=== PATIENT | male | born 1975 | race Caucasian/White ===

== ENCOUNTER 2016-08-12 19:22 | Observation (INO) | payer OTHER ==
[2016-08-12 20:12] LABS: Hematocrit 44 % (42-52); Hemoglobin 14.4 g/dl (14.0-18.0); Mean Corpuscular HGB Conc 33 g/dl (31-36); Mean Corpuscular Hemoglobin 30 pg (27-31); Mean Corpuscular Volume 91 fL (80-94); Mean Platelet Volume 7 um3 (7.4-10.4); Red Cell Distribution Width 14 % (10.5-15); White Blood Count 11.9 10^3/ul (3.5-10.8)
[2016-08-12] MEDS ORDERED: NS 0.9% 1000 ML* 1,000 ML IV SCH (20:15)
[2016-08-12 20:28] LABS: ALT 20 U/L (7-52); AST 24 U/L (13-39); Albumin 4.4 g/dL (3.2-5.2); Alkaline Phosphatase 52 U/L (34-104); Anion Gap 9 mmol/L (2-11); BUN/Creatinine Ratio 12.6 (8-20); Blood Urea Nitrogen 16 mg/dL (6-24); C Reactive Protein 6.92 mg/L (< 5.00); CO2 Carbon Dioxide 26 mmol/L (22-32); Calcium 9.5 mg/dL (8.6-10.3); Chloride 101 mmol/L (101-111); Creatine Kinase 314 U/L (10-223); EGFR Non-African American 62.2 (>60); Globulin 3.1 g/dL (2-4); Glucose 100 mg/dL (70-100); Lipase 20 U/L (11.0-82.0); Magnesium 2.2 mg/dL (1.9-2.7); Sodium 136 mmol/L (133-145); Total Protein 7.5 g/dL (6.4-8.9)
[2016-08-12 20:32] LABS: Troponin I 0.01 ng/mL (<0.04)
[2016-08-12 21:02] LABS: Alcohol < 10 mg/dL (<10); Salicylate < 2.50 mg/dL (<30)
[2016-08-12 21:11] LABS: TSH (Thyroid Stimulating Horm) 3.11 mcIU/mL (0.34-5.60)
[2016-08-12 21:25] LABS: Acetaminophen 82 mcg/mL
[2016-08-12 22:22] LABS: Urine Bilirubin Negative (Negative); Urine Glucose Negative (Negative); Urine Nitrite Negative (Negative)
[2016-08-12 22:36] LABS: Benzodiazepine Urine Screen None Detected (None Detect)
--- NOTE | 2016-08-12 22:56 | ED ---
I, Oh,Lyla, scribed for Kevin Moore MD on 08/12/16 at 1958 . Substance Abuse/Use - HPI Summary HPI Summary: This 40 y/o male presents to ED after overdosing on amlodipine, metoprolol and PM APAP ~1630 PM today. Pt is not sure how much quantity or strength of the pills he has overdosed on, but vaguely states that he took 50-80 pills total. Pt states that ingestion was intentional and aimed to harm self. Blood pressure at time of triage and initial evaluation are nml, with triage blood pressure of 125/60. PMHx includes MIx3, HTN, COPD, and anxiety. - History Of Current Complaint Chief Complaint: [facility] Stated Complaint: PILL OVERDOSE Time Seen by Provider: 08/12/16 19:35 Hx Obtained From: Patient, Medical Records Ingestion History: Type/Name Of Drug - APAP, amlodipine, and metoprolol. Overdose Characteristics: Oral Character: Depressed Aggravating Factor(s): Nothing Alleviating Factor(s): Nothing Associated Signs And Symptoms: Intentional Ingestion - Allergies/Home Medications Allergies/Adverse Reactions: Allergies Allergy/AdvReac Type Severity Reaction Status Date / Time No Known Allergies Allergy Verified 08/12/16 19:30 PMH/Surg Hx/FS Hx/Imm Hx Endocrine/Hematology History: Denies: Hx Diabetes, Hx Anemia Cardiovascular History: Reports: Hx Angina, Hx Angioplasty, Hx Cardiac Arrest, Hx Coronary Artery Disease - STENT RCA,SEE CATH REPORT, Hx Hypercholesterolemia , Hx Hypertension, Hx Myocardial Infarction - X2 Denies: Hx Aneurysm, Hx Auto Implanted Cardiovert Defib, Hx Cardiomegaly, Hx Congenital Heart Disease, Hx Congestive Heart Failure, Hx Deep Vein Thrombosis, Hx Embolism, Hx Hypotension, Hx Pacemaker/ICD Respiratory History: Reports: Hx Chronic Obstructive Pulmonary Disease (COPD), Other Respiratory Problems/Disorders - states he wheezes GI History: Reports: Hx Gastroesophageal Reflux Disease - lorri Greenwood MD gave him protonix once Musculoskeletal History: Reports: Hx Back Problems - frreq low back ache Sensory History: Denies: Hx Cataracts Opthamlomology History: Denies: Hx Cataracts - Surgical History Surgery Procedure, Year, and Place: tonsillectomy 1988 Hx Anesthesia Reactions: No Infectious Disease History: Yes Infectious Disease History: Denies: Traveled Outside the [place] in Last 30 Days - Family History Known Family History: Positive: Cardiac Disease - CAD - Social History Alcohol Use: Weekly Hx Substance Use: No Substance Use Type: Reports: None Hx Tobacco Use: Yes Smoking Status (MU): Current Every Day Smoker Type: Cigarettes Amount Used/How Often: 1/2 pack per day Length of Time of Smoking/Using Tobacco: 28 YEARS Have You Smoked in the Last Year: Yes Review of Systems Negative: Fever Positive: Other - OD on amlodipine, metoprolol, and APAP All Other Systems Reviewed And Are Negative: Yes Physical Exam Triage Information Reviewed: Yes Vital Signs On Initial Exam: Initial Vitals Temp Pulse Resp BP Pulse Ox 98.1 F 83 14 125/60 98 08/12/16 19:24 08/12/16 19:24 08/12/16 19:24 08/12/16 19:24 08/12/16 19:24 Vital Signs Reviewed: Yes Appearance: Positive: Well-Appearing, No Pain Distress Skin: Positive: Warm, Skin Color Reflects Adequate Perfusion, Dry, Other - abrasion at LUE #3 digit. Head/Face: Positive: Normal Head/Face Inspection Eyes: Positive: EOMI, ROBIN Neck: Positive: Supple, Nontender Respiratory/Lung Sounds: Positive: Clear to Auscultation, Breath Sounds Present Cardiovascular: Positive: RRR, Pulses are Symmetrical in both Upper and Lower Extremities. Negative: Bradycardia Musculoskeletal: Positive: Strength/ROM Intact Neurological: Positive: Sensory/Motor Intact, Alert, Oriented to Person Place, Time Psychiatric: Positive: Affect/Mood Appropriate AVPU Assessment: Alert Diagnostics - Vital Signs Vital Signs Temp Pulse Resp BP Pulse Ox 08/12/16 19:24 98.1 F 83 14 125/60 98 - Laboratory Lab Results: Lab Results 08/12/16 08/12/16 08/12/16 Range/Units 20:01 20:01 20:01 WBC 11.9 H (3.5-10.8) 10^3/ul RBC 4.80 (4.0-5.4) 10^6/ul Hgb 14.4 (14.0-18.0) g/dl Hct 44 (42-52) % MCV 91 (80-94) fL MCH 30 (27-31) pg MCHC 33 (31-36) g/dl RDW 14 (10.5-15) % Plt Count 289 (150-450) 10^3/ul MPV 7 L (7.4-10.4) um3 Neut % (Auto) 62.9 (38-83) % Lymph % (Auto) 27.0 (25-47) % [place] % (Auto) 7.4 (1-9) % Eos % (Auto) 1.7 (0-6) % Baso % (Auto) 1.0 (0-2) % Absolute Neuts (auto) 7.5 (1.5-7.7) 10^3/ul Absolute Lymphs (auto) 3.2 (1.0-4.8) 10^3/ul Absolute Monos (auto) 0.9 H (0-0.8) 10^3/ul Absolute Eos (auto) 0.2 (0-0.6) 10^3/ul Absolute Basos (auto) 0.1 (0-0.2) 10^3/ul Absolute Nucleated RBC 0.01 10^3/ul Nucleated RBC % 0.1 INR (Anticoag Therapy) 0.98 (0.89-1.11) APTT 27.6 (26.0-36.3) seconds Sodium 136 (133-145) mmol/L Potassium 4.0 (3.5-5.0) mmol/L Chloride 101 (101-111) mmol/L Carbon Dioxide 26 (22-32) mmol/L Anion Gap 9 (2-11) mmol/L BUN 16 (6-24) mg/dL Creatinine 1.27 H (0.67-1.17) mg/dL Est GFR ( Amer) 80.0 (>60) Est GFR (Non-Af Amer) 62.2 (>60) BUN/Creatinine Ratio 12.6 (8-20) Glucose 100 (70-100) mg/dL Lactic Acid (0.5-2.0) mmol/L Calcium 9.5 (8.6-10.3) mg/dL Magnesium 2.2 (1.9-2.7) mg/dL Total Bilirubin 0.50 (0.2-1.0) mg/dL AST 24 (13-39) U/L ALT 20 (7-52) U/L Alkaline Phosphatase 52 (34-104) U/L Total Creatine Kinase 314 H (10-223) U/L CK-MB (CK-2) 7.1 H (0.6-6.3) ng/mL Troponin I 0.01 (<0.04) ng/mL C-Reactive Protein 6.92 H (< 5.00) mg/L Total Protein 7.5 (6.4-8.9) g/dL Albumin 4.4 (3.2-5.2) g/dL Globulin 3.1 (2-4) g/dL Albumin/Globulin Ratio 1.4 (1-3) Lipase 20 (11.0-82.0) U/L TSH 3.11 (0.34-5.60) mcIU/mL Urine Color Urine Appearance Urine pH (5-9) Ur Specific [place] (1.010-1.030) Urine Protein (Negative) Urine Ketones (Negative) Urine Blood (Negative) Urine Nitrate (Negative) Urine Bilirubin (Negative) Urine Urobilinogen (Negative) Ur Leukocyte Esterase (Negative) Urine Glucose (Negative) Urine Ascorbic Acid (Negative) Salicylates < 2.50 (<30) mg/dL Urine Opiates Screen (None Detect) Acetaminophen 82 H* mcg/mL Ur Barbiturates Screen (None Detect) Ur Phencyclidine Scrn (None Detect) Ur Amphetamines Screen (None Detect) U Benzodiazepines Scrn (None Detect) Urine Cocaine Screen (None Detect) U Cannabinoids Screen (None Detect) Serum Alcohol < 10 (<10) mg/dL 08/12/16 08/12/16 08/12/16 Range/Units 20:01 22:00 22:00 WBC (3.5-10.8) 10^3/ul RBC (4.0-5.4) 10^6/ul Hgb (14.0-18.0) g/dl Hct (42-52) % MCV (80-94) fL MCH (27-31) pg MCHC (31-36) g/dl RDW (10.5-15) % Plt Count (150-450) 10^3/ul MPV (7.4-10.4) um3 Neut % (Auto) (38-83) % Lymph % (Auto) (25-47) % [place] % (Auto) (1-9) % Eos % (Auto) (0-6) % Baso % (Auto) (0-2) % Absolute Neuts (auto) (1.5-7.7) 10^3/ul Absolute Lymphs (auto) (1.0-4.8) 10^3/ul Absolute Monos (auto) (0-0.8) 10^3/ul Absolute Eos (auto) (0-0.6) 10^3/ul Absolute Basos (auto) (0-0.2) 10^3/ul Absolute Nucleated RBC 10^3/ul Nucleated RBC % INR (Anticoag Therapy) (0.89-1.11) APTT (26.0-36.3) seconds Sodium (133-145) mmol/L Potassium (3.5-5.0) mmol/L Chloride (101-111) mmol/L Carbon Dioxide (22-32) mmol/L Anion Gap (2-11) mmol/L BUN (6-24) mg/dL Creatinine (0.67-1.17) mg/dL Est GFR ( Amer) (>60) Est GFR (Non-Af Amer) (>60) BUN/Creatinine Ratio (8-20) Glucose (70-100) mg/dL Lactic Acid 0.6 (0.5-2.0) mmol/L Calcium (8.6-10.3) mg/dL Magnesium (1.9-2.7) mg/dL Total Bilirubin (0.2-1.0) mg/dL AST (13-39) U/L ALT (7-52) U/L Alkaline Phosphatase (34-104) U/L Total Creatine Kinase (10-223) U/L CK-MB (CK-2) (0.6-6.3) ng/mL Troponin I (<0.04) ng/mL C-Reactive Protein (< 5.00) mg/L Total Protein (6.4-8.9) g/dL Albumin (3.2-5.2) g/dL Globulin (2-4) g/dL Albumin/Globulin Ratio (1-3) Lipase (11.0-82.0) U/L TSH (0.34-5.60) mcIU/mL Urine Color Straw Urine Appearance Clear Urine pH 5.0 (5-9) Ur Specific [place] 1.009 L (1.010-1.030) Urine Protein Negative (Negative) Urine Ketones Negative (Negative) Urine Blood Negative (Negative) Urine Nitrate Negative (Negative) Urine Bilirubin Negative (Negative) Urine Urobilinogen Negative (Negative) Ur Leukocyte Esterase Negative (Negative) Urine Glucose Negative (Negative) Urine Ascorbic Acid * H (Negative) Salicylates (<30) mg/dL Urine Opiates Screen None detected (None Detect) Acetaminophen mcg/mL Ur Barbiturates Screen None detected (None Detect) Ur Phencyclidine Scrn None detected (None Detect) Ur Amphetamines Screen None detected (None Detect) U Benzodiazepines Scrn None detected (None Detect) Urine Cocaine Screen None detected (None Detect) U Cannabinoids Screen Presumptive positive H (None Detect) Serum Alcohol (<10) mg/dL 08/12/16 Range/Units 22:00 WBC (3.5-10.8) 10^3/ul RBC (4.0-5.4) 10^6/ul Hgb (14.0-18.0) g/dl Hct (42-52) % MCV (80-94) fL MCH (27-31) pg MCHC (31-36) g/dl RDW (10.5-15) % Plt Count (150-450) 10^3/ul MPV (7.4-10.4) um3 Neut % (Auto) (38-83) % Lymph % (Auto) (25-47) % [place] % (Auto) (1-9) % Eos % (Auto) (0-6) % Baso % (Auto) (0-2) % Absolute Neuts (auto) (1.5-7.7) 10^3/ul Absolute Lymphs (auto) (1.0-4.8) 10^3/ul Absolute Monos (auto) (0-0.8) 10^3/ul Absolute Eos (auto) (0-0.6) 10^3/ul Absolute Basos (auto) (0-0.2) 10^3/ul Absolute Nucleated RBC 10^3/ul Nucleated RBC % INR (Anticoag Therapy) (0.89-1.11) APTT (26.0-36.3) seconds Sodium (133-145) mmol/L Potassium (3.5-5.0) mmol/L Chloride (101-111) mmol/L Carbon Dioxide (22-32) mmol/L Anion Gap (2-11) mmol/L BUN (6-24) mg/dL Creatinine (0.67-1.17) mg/dL Est GFR ( Amer) (>60) Est GFR (Non-Af Amer) (>60) BUN/Creatinine Ratio (8-20) Glucose (70-100) mg/dL Lactic Acid (0.5-2.0) mmol/L Calcium (8.6-10.3) mg/dL Magnesium (1.9-2.7) mg/dL Total Bilirubin (0.2-1.0) mg/dL AST (13-39) U/L ALT (7-52) U/L Alkaline Phosphatase (34-104) U/L Total Creatine Kinase (10-223) U/L CK-MB (CK-2) (0.6-6.3) ng/mL Troponin I (<0.04) ng/mL C-Reactive Protein (< 5.00) mg/L Total Protein (6.4-8.9) g/dL Albumin (3.2-5.2) g/dL Globulin (2-4) g/dL Albumin/Globulin Ratio (1-3) Lipase (11.0-82.0) U/L TSH (0.34-5.60) mcIU/mL Urine Color Urine Appearance Urine pH (5-9) Ur Specific [place] (1.010-1.030) Urine Protein (Negative) Urine Ketones (Negative) Urine Blood (Negative) Urine Nitrate (Negative) Urine Bilirubin (Negative) Urine Urobilinogen (Negative) Ur Leukocyte Esterase (Negative) Urine Glucose (Negative) Urine Ascorbic Acid (Negative) Salicylates (<30) mg/dL Urine Opiates Screen (None Detect) Acetaminophen 59 H* mcg/mL Ur Barbiturates Screen (None Detect) Ur Phencyclidine Scrn (None Detect) Ur Amphetamines Screen (None Detect) U Benzodiazepines Scrn (None Detect) Urine Cocaine Screen (None Detect) U Cannabinoids Screen (None Detect) Serum Alcohol (<10) mg/dL Result Diagrams: 08/12/16 20:01 08/12/16 20:01 Lab Statement: Any lab studies that have been ordered have been reviewed, and results considered in the medical decision making process. Course/Dx - Course Course Of Treatment: NO CRITICAL CARE TIME Assessment/Plan: DISCUSSED WITH POISON CONTROL. ADMIT HOSPITALIST STABLE. - Diagnoses Provider Diagnoses: Mental health problem, Overdose - Physician Notifications Discussed Care Of Patient With: Poison control recommends [address] Banerjee (Hospitalist) at 2130 PM Time Discussed With Above Provider: 21:30 Discharge - Discharge Plan Condition: Stable Disposition: ADMITTED TO [facility] Referrals: Nori Velazco MD [Primary Care Provider] - The documentation as recorded by the Justyn barron Soohyun accurately reflects the service I personally performed and the decisions made by me, Kevin Moore MD.
[2016-08-13] MEDS ORDERED: NS 0.9% 1000 ML* 1,000 ML IV SCH (03:45)
[2016-08-13 05:36] LABS: ALT 23 U/L (7-52); AST 25 U/L (13-39); Albumin 3.9 g/dL (3.2-5.2); Alkaline Phosphatase 47 U/L (34-104); Globulin 2.8 g/dL (2-4); Indirect Bilirubin 0.5 mg/dL (0.3-1.0); Total Protein 6.7 g/dL (6.4-8.9)
[2016-08-13 05:58] LABS: Acetaminophen < 15 mcg/mL
[2016-08-13] MEDS: Heparin VIAL(*) 5000 UNITS/ML VIAL (FIVE THOUSAND) SUBCUT SCH ×2 (06:17→13:52)
--- NOTE | 2016-08-13 08:14 | DCNOTE ---
Subjective Date of Service: 08/13/16 Interval History: No chest pain, SOB, cough. No GI upset. Pt states he took an unknown quantity of acetaminophen and metoprolol to "end it." Objective Active Medications: Aspirin (Aspirin Low Dose Tab*) 81 mg PO DAILY [facility] Heparin Sodium (Porcine) (Heparin Vial(*)) 5,000 units SUBCUT Q8HR [facility] Last Admin: 08/13/16 06:17 Dose: 5,000 units Sodium Chloride (Ns 0.9% 1000 Ml*) 1,000 mls @ 100 mls/hr IV PER RATE [facility] Last Admin: 08/13/16 06:16 Dose: 100 mls/hr Ticagrelor (Brilinta*) 90 mg PO BID [facility] Vital Signs 08/13/16 08/13/16 04:18 04:58 Temperature 97.5 F Pulse Rate 51 Respiratory 16 16 Rate Blood Pressure 99/54 (mmHg) O2 Sat by Pulse 98 Oximetry Oxygen Devices in Use Now: None Appearance: Alert, supine in bed. Looks comfortable. Eyes: No Scleral Icterus Neck: NL Appearance and Movements; NL JVP, No Thyroid Enlargement, Masses Respiratory: Symmetrical Chest Expansion and Respiratory Effort, Clear to Auscultation, Clear to Percussion Cardiovascular: NL Sounds; No Murmurs; No JVD, RRR, No Edema, - Extremities: No Edema, No Clubbing, Cyanosis, - Neurological: Alert and Oriented x 3, NL Sensation Result Diagrams: 08/12/16 20:01 08/12/16 20:01 Additional Lab and Data: Lab Results 08/12/16 08/12/16 08/12/16 Range/Units 20:01 20:01 20:01 WBC 11.9 H (3.5-10.8) 10^3/ul RBC 4.80 (4.0-5.4) 10^6/ul Hgb 14.4 (14.0-18.0) g/dl Hct 44 (42-52) % MCV 91 (80-94) fL MCH 30 (27-31) pg MCHC 33 (31-36) g/dl RDW 14 (10.5-15) % Plt Count 289 (150-450) 10^3/ul MPV 7 L (7.4-10.4) um3 Neut % (Auto) 62.9 (38-83) % Lymph % (Auto) 27.0 (25-47) % [place] % (Auto) 7.4 (1-9) % Eos % (Auto) 1.7 (0-6) % Baso % (Auto) 1.0 (0-2) % Absolute Neuts (auto) 7.5 (1.5-7.7) 10^3/ul Absolute Lymphs (auto) 3.2 (1.0-4.8) 10^3/ul Absolute Monos (auto) 0.9 H (0-0.8) 10^3/ul Absolute Eos (auto) 0.2 (0-0.6) 10^3/ul Absolute Basos (auto) 0.1 (0-0.2) 10^3/ul Absolute Nucleated RBC 0.01 10^3/ul Nucleated RBC % 0.1 INR (Anticoag Therapy) 0.98 (0.89-1.11) APTT 27.6 (26.0-36.3) seconds Sodium 136 (133-145) mmol/L Potassium 4.0 (3.5-5.0) mmol/L Chloride 101 (101-111) mmol/L Carbon Dioxide 26 (22-32) mmol/L Anion Gap 9 (2-11) mmol/L BUN 16 (6-24) mg/dL Creatinine 1.27 H (0.67-1.17) mg/dL Est GFR ( Amer) 80.0 (>60) Est GFR (Non-Af Amer) 62.2 (>60) BUN/Creatinine Ratio 12.6 (8-20) Glucose 100 (70-100) mg/dL Lactic Acid (0.5-2.0) mmol/L Calcium 9.5 (8.6-10.3) mg/dL Magnesium 2.2 (1.9-2.7) mg/dL Total Bilirubin 0.50 (0.2-1.0) mg/dL AST 24 (13-39) U/L ALT 20 (7-52) U/L Alkaline Phosphatase 52 (34-104) U/L Total Creatine Kinase 314 H (10-223) U/L CK-MB (CK-2) 7.1 H (0.6-6.3) ng/mL Troponin I 0.01 (<0.04) ng/mL C-Reactive Protein 6.92 H (< 5.00) mg/L Total Protein 7.5 (6.4-8.9) g/dL Albumin 4.4 (3.2-5.2) g/dL Globulin 3.1 (2-4) g/dL Albumin/Globulin Ratio 1.4 (1-3) Lipase 20 (11.0-82.0) U/L TSH 3.11 (0.34-5.60) mcIU/mL Urine Color Urine Appearance Urine pH (5-9) Ur Specific [place] (1.010-1.030) Urine Protein (Negative) Urine Ketones (Negative) Urine Blood (Negative) Urine Nitrate (Negative) Urine Bilirubin (Negative) Urine Urobilinogen (Negative) Ur Leukocyte Esterase (Negative) Urine Glucose (Negative) Urine Ascorbic Acid (Negative) Salicylates < 2.50 (<30) mg/dL Urine Opiates Screen (None Detect) Acetaminophen 82 H* mcg/mL Ur Barbiturates Screen (None Detect) Ur Phencyclidine Scrn (None Detect) Ur Amphetamines Screen (None Detect) U Benzodiazepines Scrn (None Detect) Urine Cocaine Screen (None Detect) U Cannabinoids Screen (None Detect) Serum Alcohol < 10 (<10) mg/dL 08/12/16 08/12/16 08/12/16 Range/Units 20:01 22:00 22:00 WBC (3.5-10.8) 10^3/ul RBC (4.0-5.4) 10^6/ul Hgb (14.0-18.0) g/dl Hct (42-52) % MCV (80-94) fL MCH (27-31) pg MCHC (31-36) g/dl RDW (10.5-15) % Plt Count (150-450) 10^3/ul MPV (7.4-10.4) um3 Neut % (Auto) (38-83) % Lymph % (Auto) (25-47) % [place] % (Auto) (1-9) % Eos % (Auto) (0-6) % Baso % (Auto) (0-2) % Absolute Neuts (auto) (1.5-7.7) 10^3/ul Absolute Lymphs (auto) (1.0-4.8) 10^3/ul Absolute Monos (auto) (0-0.8) 10^3/ul Absolute Eos (auto) (0-0.6) 10^3/ul Absolute Basos (auto) (0-0.2) 10^3/ul Absolute Nucleated RBC 10^3/ul Nucleated RBC % INR (Anticoag Therapy) (0.89-1.11) APTT (26.0-36.3) seconds Sodium (133-145) mmol/L Potassium (3.5-5.0) mmol/L Chloride (101-111) mmol/L Carbon Dioxide (22-32) mmol/L Anion Gap (2-11) mmol/L BUN (6-24) mg/dL Creatinine (0.67-1.17) mg/dL Est GFR ( Amer) (>60) Est GFR (Non-Af Amer) (>60) BUN/Creatinine Ratio (8-20) Glucose (70-100) mg/dL Lactic Acid 0.6 (0.5-2.0) mmol/L Calcium (8.6-10.3) mg/dL Magnesium (1.9-2.7) mg/dL Total Bilirubin (0.2-1.0) mg/dL AST (13-39) U/L ALT (7-52) U/L Alkaline Phosphatase (34-104) U/L Total Creatine Kinase (10-223) U/L CK-MB (CK-2) (0.6-6.3) ng/mL Troponin I (<0.04) ng/mL C-Reactive Protein (< 5.00) mg/L Total Protein (6.4-8.9) g/dL Albumin (3.2-5.2) g/dL Globulin (2-4) g/dL Albumin/Globulin Ratio (1-3) Lipase (11.0-82.0) U/L TSH (0.34-5.60) mcIU/mL Urine Color Straw Urine Appearance Clear Urine pH 5.0 (5-9) Ur Specific [place] 1.009 L (1.010-1.030) Urine Protein Negative (Negative) Urine Ketones Negative (Negative) Urine Blood Negative (Negative) Urine Nitrate Negative (Negative) Urine Bilirubin Negative (Negative) Urine Urobilinogen Negative (Negative) Ur Leukocyte Esterase Negative (Negative) Urine Glucose Negative (Negative) Urine Ascorbic Acid * H (Negative) Salicylates (<30) mg/dL Urine Opiates Screen None detected (None Detect) Acetaminophen mcg/mL Ur Barbiturates Screen None detected (None Detect) Ur Phencyclidine Scrn None detected (None Detect) Ur Amphetamines Screen None detected (None Detect) U Benzodiazepines Scrn None detected (None Detect) Urine Cocaine Screen None detected (None Detect) U Cannabinoids Screen Presumptive positive H (None Detect) Serum Alcohol (<10) mg/dL 08/12/16 Range/Units 22:00 WBC (3.5-10.8) 10^3/ul RBC (4.0-5.4) 10^6/ul Hgb (14.0-18.0) g/dl Hct (42-52) % MCV (80-94) fL MCH (27-31) pg MCHC (31-36) g/dl RDW (10.5-15) % Plt Count (150-450) 10^3/ul MPV (7.4-10.4) um3 Neut % (Auto) (38-83) % Lymph % (Auto) (25-47) % [place] % (Auto) (1-9) % Eos % (Auto) (0-6) % Baso % (Auto) (0-2) % Absolute Neuts (auto) (1.5-7.7) 10^3/ul Absolute Lymphs (auto) (1.0-4.8) 10^3/ul Absolute Monos (auto) (0-0.8) 10^3/ul Absolute Eos (auto) (0-0.6) 10^3/ul Absolute Basos (auto) (0-0.2) 10^3/ul Absolute Nucleated RBC 10^3/ul Nucleated RBC % INR (Anticoag Therapy) (0.89-1.11) APTT (26.0-36.3) seconds Sodium (133-145) mmol/L Potassium (3.5-5.0) mmol/L Chloride (101-111) mmol/L Carbon Dioxide (22-32) mmol/L Anion Gap (2-11) mmol/L BUN (6-24) mg/dL Creatinine (0.67-1.17) mg/dL Est GFR ( Amer) (>60) Est GFR (Non-Af Amer) (>60) BUN/Creatinine Ratio (8-20) Glucose (70-100) mg/dL Lactic Acid (0.5-2.0) mmol/L Calcium (8.6-10.3) mg/dL Magnesium (1.9-2.7) mg/dL Total Bilirubin (0.2-1.0) mg/dL AST (13-39) U/L ALT (7-52) U/L Alkaline Phosphatase (34-104) U/L Total Creatine Kinase (10-223) U/L CK-MB (CK-2) (0.6-6.3) ng/mL Troponin I (<0.04) ng/mL C-Reactive Protein (< 5.00) mg/L Total Protein (6.4-8.9) g/dL Albumin (3.2-5.2) g/dL Globulin (2-4) g/dL Albumin/Globulin Ratio (1-3) Lipase (11.0-82.0) U/L TSH (0.34-5.60) mcIU/mL Urine Color Urine Appearance Urine pH (5-9) Ur Specific [place] (1.010-1.030) Urine Protein (Negative) Urine Ketones (Negative) Urine Blood (Negative) Urine Nitrate (Negative) Urine Bilirubin (Negative) Urine Urobilinogen (Negative) Ur Leukocyte Esterase (Negative) Urine Glucose (Negative) Urine Ascorbic Acid (Negative) Salicylates (<30) mg/dL Urine Opiates Screen (None Detect) Acetaminophen 59 H* mcg/mL Ur Barbiturates Screen (None Detect) Ur Phencyclidine Scrn (None Detect) Ur Amphetamines Screen (None Detect) U Benzodiazepines Scrn (None Detect) Urine Cocaine Screen (None Detect) U Cannabinoids Screen (None Detect) Serum Alcohol (<10) mg/dL Assess/Plan/Problems-Billing Assessment: - Patient Problems (1) Suicide attempt Status: Acute Comment: Patient accepted in transfer to [facility] today. (2) CAD (coronary artery disease) Status: Acute Code(s): I25.10 - ATHSCL HEART DISEASE OF [place] CORONARY ARTERY W/O ANG PCTRS SNOMED Code(s): 12410918 Comment: Re-stented 12/2015. Continue ASA, ticagrelor, statin. Resume metoprolol 08/14. Status and Disposition: Patient accepted in transfer to [facility] today.
[2016-08-13] MEDS ORDERED: Aspirin Low Dose CHEW TAB* 81 MG PO SCH (09:00)
[2016-08-13] MEDS ORDERED: Ticagrelor* 90 MG TAB PO SCH ×2 (09:00→21:00)
[2016-08-13] MEDS ORDERED: Nicotine Inhaler* 10 MG AMP INH PRN (13:14)
[2016-08-13] MEDS ORDERED: busPIRone TAB* 10 MG PO PRN (13:15)
[2016-08-13] MEDS ORDERED: Nitroglycerin TAB 0.4 MG* 0.4 MG TAB SL PRN (13:15)
[2016-08-13] MEDS ORDERED: Albuterol HFA INHALER* 8 gm MDI INH PRN (13:15)
[2016-08-13 13:29] VITALS: BP 105/58
--- NOTE | 2016-08-13 14:14 | HP ---
HISTORY AND PHYSICAL: DATE OF ADMISSION: 08/13/16 PRIMARY CARE PHYSICIAN: Dr. Nori Velazco. CHIEF COMPLAINT: "I tried to kill myself." HISTORY OF PRESENT ILLNESS: The patient is a 40-year-old gentleman, who presented to [facility] after taking too many Tylenol, amlodipine, and metoprolol. The patient is reluctant to give me any more information because he is very irritated and somewhat violent. He refused to answer many of my questions. But according to the ER doctor, he took about pills. PAST MEDICAL HISTORY: Significant for coronary artery disease with 2 prior myocardial infarctions, dyslipidemia, hypertension, GERD, and COPD. MEDICATIONS: His current medications are not entirely known because he is unwilling to give any information, but according to our last records, he was on: 1. Amlodipine 5 mg a day. 2. Aspirin 81 mg daily. 3. Lisinopril 5 mg daily. 4. Metoprolol succinate 25 mg daily. 5. Nitroglycerin sublingual as needed for chest pain. 6. Brilinta 90 mg twice daily. 7. Crestor. ALLERGIES: He has no known drug allergies. FAMILY HISTORY: Mother is alive and well. Father is alive and well. SOCIAL HISTORY: Smokes 3 packs per week and now he smokes 1 pack a day for 28 years. Occasional alcohol, occasional marijuana. He is a bottle machine operator. He is , but unhappy in his marriage. He has 9 children. REVIEW OF SYSTEMS: Unable to obtain from the patient, he is unwilling to speak to me. PHYSICAL EXAMINATION GENERAL: Unpleasant man, lying in bed, in no acute distress. VITAL SIGNS: Blood pressure 94/54, pulse ox 97%, respiratory rate 23 breaths per minute, heart rate 50 beats per minute, temperature is 98.1 degrees. HEENT: Normocephalic, atraumatic. Pupils are equal, round and reactive to light. Moist mucous membranes. NECK: Supple. No JVD, bruits, palpable thyroid, or lymphadenopathy. CHEST: Clear to auscultation and percussion bilaterally. CARDIOVASCULAR: S1, S2 appreciated. Regular rate and rhythm. ABDOMEN: Positive bowel sounds in all 4 quadrants. Soft, nontender, and nondistended. EXTREMITIES: No cyanosis, clubbing, or edema. +2 peripheral pulses bilaterally. NEURO: Alert and oriented x3. Moves all extremities. SKIN: No rashes or abnormalities. DIAGNOSTIC STUDIES/LAB DATA: White count 11.9, hemoglobin 14.4, hematocrit 44 , platelets 289. Sodium 136, potassium 4.0, chloride 101, CO2 26, BUN 16, creatinine 1.27, glucose 100. CPK 314. Troponin 0.01. CRP 6.92. AST 24, ALT 20. First acetaminophen level was 82, second was 59. Positive for marijuana. Urinalysis unremarkable. EKG shows normal sinus rhythm at 76 beats per minute, normal axis, no acute ST- T wave changes. ASSESSMENT AND PLAN: 1. Overdose with Tylenol, metoprolol, and amlodipine. The patient is below the nomogram, he will receive Mucomyst, but we will place on quality assurance monitor final overnight. Recheck Tylenol and liver function tests in the morning. The patient is somewhat bradycardic because of the amlodipine with possible reflex tachycardia, will balance off the metoprolol. We will get Psych evaluation in the morning for depression and suicide attempt. The patient will be on one to one. 2. FEN. Regular diet. 3. DVT prophylaxis. Heparin subcu. 4. The patient is a full code. TIME SPENT: Over 75 minutes was spent on this H and P; more than 40 minutes of which was spent in direct [id number] contact with the patient in evaluation, physical exam, counseling, and coordination of care. CC: Dr. Nori Velazco* [id number]/CPS #: [id number] MTDD
[2016-08-13] MEDS ORDERED: Atorvastatin* 80 MG TAB PO SCH (17:00)
[2016-08-13] MEDS ORDERED: buPROPion SR TAB.SR* 150 MG PO SCH (21:00)
[2016-08-14] MEDS ORDERED: Nicotine PATCH 21 MG/24 HR* PATCH TRANSDERM SCH (08:00)
[2016-08-14] MEDS ORDERED: Lisinopril TAB* 5 MG PO SCH (09:00)
[2016-08-14] MEDS ORDERED: Umeclidin/Vilant 62.5 MDI 62.5/25 mcg 14 INH ELLIPTA DEVICE INH SCH (09:00)
[2016-08-14] MEDS ORDERED: Omeprazole CAP* 20 MG PO SCH (09:00)
[2016-08-14] MEDS ORDERED: Rosuvastatin (NF) 20 MG TAB PO SCH (09:00)
[2016-08-14] MEDS ORDERED: amLODIPine TAB* 5 MG PO SCH ×2 (09:00→14:00)
[2016-08-14] MEDS ORDERED: Metoprolol Succinate XL TAB* 25 MG PO SCH ×2 (09:00→14:00)
[2016-08-14] MEDS ORDERED: Aspirin EC Low Dose* 81 MG TAB.EC PO SCH (09:00)
[2016-08-14] MEDS ORDERED: Nitroglycerin TAB 0.4 MG* 0.4 MG TAB SL PRN (13:13)
[2016-08-14] MEDS ORDERED: Citalopram TAB* 20 MG PO SCH (14:00)
[2016-08-14] MEDS ORDERED: busPIRone TAB* 15 MG PO SCH (14:00)
[2016-08-14] MEDS ORDERED: Atorvastatin* 80 MG TAB PO SCH (17:00)
[2016-08-14] MEDS ORDERED: buPROPion SR TAB.SR* 150 MG PO SCH (17:00)
[2016-08-14] MEDS ORDERED: QUEtiapine TAB* 100 MG PO SCH (21:00)
[2016-08-14] MEDS ORDERED: Ticagrelor* 90 MG TAB PO SCH (21:00)
[2016-08-15] MEDS ORDERED: Aspirin EC Low Dose* 81 MG TAB.EC PO SCH (09:00)
[2016-08-15] MEDS ORDERED: Lisinopril TAB* 5 MG PO SCH (09:00)
--- NOTE | 2016-08-15 18:01 | DS ---
DISCHARGE SUMMARY: DATE OF ADMISSION: DATE OF DISCHARGE: 08/13/16 HISTORY OF PRESENT ILLNESS: This 40-year-old man presented with a history of an overdose of medications. This was felt from the start to be an intentional overdose; in fact, when asked the patient what he thought would happen when he took the medication, he thought he would be "ending it." The patient was very hostile and angry in the emergency room. He was not very forthcoming with me as how many pills he had taken and his history certainly is not very reliable. The overall impression was that he had overdosed on acetaminophen, amlodipine, and metoprolol, which had been prescribed to him. The acetaminophen level was significantly elevated but did not reach the level on the nomogram to require treatment and a repeat level had fallen significantly. The patient was observed on telemetry. He was quite stable. His resting heart rate was in the 50s, close to 60. He seemed to have suffered no significant after effects. He does have history of coronary artery disease and was restarted on his aspirin and ticagrelor. He should continue on aspirin 81 mg daily and ticagrelor 90 mg b.i.d. Statin should be continued as well unless there is some contraindication. I think it would be safe to restart him on his usual dose of metoprolol on August 14. FINAL DIAGNOSES: 1. Suicide attempt. 2. Coronary artery disease. [id number]/[facility] #: [id number] MTDD
== END 2016-08-13 14:15 ==
LOC: ED 19:22 → INTOOBSV 08-13 03:44 → MEDTELE 08-13 03:44
PROVIDERS: ADMIT Internal Medicine; ATTEND Internal Medicine
DX: T39.1X2A Poisoning by 4-Aminophenol derivatives, intentional self-harm, initial encounter (principal); T44.7X2A Poisoning by beta-adrenoreceptor antagonists, intentional self-harm, initial encounter; T46.1X2A Poisoning by calcium-channel blockers, intentional self-harm, initial encounter; I25.110 Atherosclerotic heart disease of native coronary artery with unstable angina pectoris; I25.2 Old myocardial infarction; I10 Essential (primary) hypertension; E78.5 Hyperlipidemia, unspecified; K21.9 Gastro-esophageal reflux disease without esophagitis; J44.9 Chronic obstructive pulmonary disease, unspecified; Z79.82 Long term (current) use of aspirin; Z79.899 Other long term (current) drug therapy; F17.210 Nicotine dependence, cigarettes, uncomplicated; Z95.5 Presence of coronary angioplasty implant and graft
CPT/HCPCS: 36415; 80053; 80076; 80307; 80320; 80329; 81003; 82550; 82553; 83605; 83690; 83735; 84443; 84484; 85025; 85610; 85730; 86140; 93005; 94664; 94760; 96372; 99284; 99406; A9270-GY; G0378; G0480; J1644

== ENCOUNTER 2016-08-13 11:57 | Inpatient (IN) | payer OTHER ==
[2016-08-13] MEDS: chlorproMAZINE TAB* 50 MG PO PRN ×2 (15:43→20:09)
[2016-08-13] MEDS ORDERED: Nicotine Inhaler* 10 MG AMP INH PRN (17:32)
[2016-08-13] MEDS ORDERED: Nicotine GUM* 2 MG PO PRN (17:32)
[2016-08-13] MEDS ORDERED: Mouth Piece, Nicotine* 1 EACH CARTRIDGE INH SCH (17:32)
[2016-08-13] MEDS: Nicotine PATCH 21 MG/24 HR* PATCH TRANSDERM SCH (17:47)
[2016-08-13] MEDS: Nicotine Patch Removal NOTE PATCH OFF SCH (22:08)
[2016-08-13] MEDS ORDERED: Nitroglycerin TAB 0.4 MG* 0.4 MG TAB SL PRN (23:01)
[2016-08-14] MEDS: Nicotine PATCH 21 MG/24 HR* PATCH TRANSDERM SCH (09:45)
[2016-08-14] MEDS: amLODIPine TAB* 5 MG PO SCH ×2 (09:45→09:55)
[2016-08-14] MEDS: Omeprazole CAP* 20 MG PO SCH ×2 (09:47→09:55)
[2016-08-14] MEDS: Atorvastatin* 80 MG TAB PO SCH ×2 (09:47→09:55)
[2016-08-14] MEDS: Lisinopril TAB* 5 MG PO SCH ×2 (09:47→09:55)
[2016-08-14] MEDS: Metoprolol Succinate XL TAB* 25 MG PO SCH ×2 (09:48→09:55)
[2016-08-14] MEDS: Ticagrelor* 90 MG TAB PO SCH ×3 (09:49→21:37)
--- NOTE | 2016-08-14 15:38 | HP ---
DATE OF ADMISSION: 08/13/2016. JUSTIFICATION FOR ADMISSION: The patient is in need of 24 hour supervision and treatment secondary to a suicidal overdose occurring within 72 hours of admission. CHIEF COMPLAINT: "My whole life is going to shit and you're making it worse by keeping me here." HISTORY OF PRESENT ILLNESS: The patient is a 40-year-old, , white male with a history of sev ere coronary artery disease, as well as anxiety and depression who is transferred to the [facility] from [facility] inpatient hospital unit following medical stabilization from an intentional overdose on a handful of Tylenol, Amlodipine and Metoprolol tablets. The patient is extremely hostile and angry. He is l oud, yelling at this observer and it is only with some care that this history is gathered. He state s that he has been fighting with his of the last eight years. He states that on , he got into a fight with a coworker at his job and promptly walked out. He is upset also be cause he is apparently losing his Medicaid insurance because [employer] found out that he was w orking on the side. He is very upset about this, indicating that he cannot live on the subsistence that [employer] provides him with; for example, he states that although he admits to having a c ar that is worth $9,000.00 on the market, the fact that he owes a $11,000.00 on it means that it can not be counted as a material asset. Things came to a head apparently when he got into a conflict wi th his spouse whose name is Mar. It is known that she visited the unit yesterday and the two of them were in a verbal altercation and so she was escorted off the unit. At any rate, in terms of sym ptoms, the patient is endorsing extreme irritability, depressed mood, difficulty sleeping, poor appe tite, limited concentration. When I ask if he will attempt to end his life, he indicates "I'm such a f--k-up, I can't even get that right." He refuses to contract for safety at this time. PAST PSYCHIATRIC HISTORY: The patient states that he has no past history of psychiatric admissions, nor has he seen a psychiatrist in the past. He goes to a family practice office in [facility] and indicates that they have had him on numerous medication trials in the past. He states that what worked the best was Wellbutrin, but he states that the generic version of this, which is Buprop ion has been unhelpful for him. He has also used Lexapro, BuSpar, and Seroquel in the past. The pa sonal denies any past history of suicide attempts. He denies any history of violence towards others . PAST MEDICAL HISTORY: Current medical history is significant for coronary artery disease with three total myocardial infarctions. He also has hyperlipidemia, hypertension, gastroesophageal reflux di sorder, and COPD. CURRENT MEDICATIONS: 1. Amlodipine 2.5 mg p.o. daily. 2. Aspirin 81 mg p.o. daily. 3. Lisinopril 5 mg p.o. daily. 4. Toprol XL 25 mg p.o. daily. 5. Nitroglycerin 0.4 mg as needed sublingually for chest pain. 6. Brilinta 90 mg p.o. b.i.d. 7. Crestor 40 mg daily. 8. BuSpar 10 mg t.i.d. 9. Wellbutrin 150 mg p.o. b.i.d. ALLERGIES: He has no known drug allergies. FAMILY HISTORY: Both of his parents are alive. He states that he has a maternal cousin who was add icted to heroin and successfully completed suicide in 2010. SUBSTANCE ABUSE HISTORY: The patient smokes one pack of cigarettes per day for the past 28 years. He indicates that he is a social drinker, but has not had any alcohol to drink in over two weeks. Brenda gil is a daily cannabis smoker. He used cocaine once in his life and has never used opioids or other illicit drugs. SOCIAL HISTORY: The patient lives in [place] with his of eight years. He indicates that he has two biological children and seven step-children and up to 12 grandchildren. 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 Last date of work was August 09. He states that he is currently on Medicaid for the past three years. He has no history of service and states that he has no formal legal history. REVIEW OF SYSTEMS: The patient denies headache or double vision. He denies sore throat, cough, joselin st pain, or difficulty breathing. He denies abdominal pain, nausea, vomiting, diarrhea, or constipa tion. He denies difficulty ambulating, enlarged lymph nodes, rashes, fevers, or changes in weight. PHYSICAL EXAMINATION VITAL SIGNS: Blood pressure 108/74, heart rate 53, oxygen saturation 99 percent on room air, temper ature 98.4 degrees Fahrenheit, respiratory rate 16 breaths per minute. HEENT: Normocephalic, atraumatic. Pupils are equal, round and reactive to light. NECK: Supple. CHEST: Clear to auscultation bilaterally. CARDIOVASCULAR: Exam reveals normal heart sounds. ABDOMEN: Soft and nontender. EXTREMITIES: Reveal no sign of edema. NEUROLOGIC: He is grossly intact with no focal deficits. LABORATORY DATA: CBC is within normal limits. Complete metabolic panel reveals mild renal insuffi ciency with a creatinine of 1.27. His creatinine kinase is elevated at 314. CK-MB elevated at 7.1. C-reactive protein elevated at 6.92. Urinalysis is within normal limits. Urine drug screen is pos itive for cannabis. In addition, his acetaminophen level is elevated at 59. MENTAL STATUS EXAM: The patient is a middle-aged, white male who is lying in bed wearing a pair of pajamas. He has a mustache. He seems to be fairly well-groomed. He refuses to get up from bed, but stares intensely at this clinician and it is somewhat difficult to establish a rapport with him as he is hostile and angry. His speech is loud and pressured. Mood is irritable with a labile affect. Thought process is tangential. Thought content is significant for his anger at being in the [facility], as well as his anger directed towards his employers, the Medicaid system and his spouse. He cu rrently is very vague about suicidal ideations, refusing to confirm whether he does or does not have any intention of harming himself. He does deny homicidality. He denies auditory or visual halluci nations. Insight and judgment appear to be poor given his recent overdose on multiple medications. Cognitively, he is awake and alert with what would appear to be an average intellect. DIAGNOSES: AXIS I: Unspecified mood disorder, rule out major depressive disorder, recurrent episode severe justyna dev bipolar mixed state. Cannabis use disorder. AXIS II: Deferred. AXIS III: Coronary artery disease, COPD, gastroesophageal reflux disease, hyperlipidemia, hypertens ion, acute renal insufficiency. AXIS IV: Severe, financial, occupational, and primary support stressors. AXIS V: At this time is 40. IMPRESSION: The patient is a 40-year-old, , white male with a history of severe coronary art ronald disease who has had problems with depression and anxiety in the past who now comes to our unit a s a transfer from the Medical Unit following an intentional overdose on Tylenol, Metoprolol, and Aml odipine. The patient remains hostile and upset and it is difficult to form a therapeutic alliance w ith him at this time. PLAN: The patient is admitted to the Adult Behavioral Health Unit where he is placed on q.30 minute checks for his own safety. We will resume outpatient medications, including aspirin, Lipitor in th e place of Crestor, Lisinopril, Metoprolol, nitroglycerin, Brilinta, Amlodipine, Bupropion and Buspi [place]. In addition, we will add a trial of Citalopram 20 mg daily, as well as Seroquel 100 mg nightl y as he states that these have been beneficial in the past. We need to reach his , Mar, for further collateral information and talk to his doctor at [facility]. While he is here, he is certainly encouraged to avail himself of all milieu activities, including group and individual p sychotherapies. [id number]/[facility] #: [id number]
[2016-08-14] MEDS: busPIRone TAB* 10 MG PO PRN (19:42)
[2016-08-14] MEDS: chlorproMAZINE TAB* 50 MG PO PRN (19:42)
[2016-08-14] MEDS: Nicotine Patch Removal NOTE PATCH OFF SCH (21:37)
[2016-08-15] MEDS: Omeprazole CAP* 20 MG PO SCH (09:54)
[2016-08-15] MEDS: amLODIPine TAB* 5 MG PO SCH (09:54)
[2016-08-15] MEDS: Atorvastatin* 80 MG TAB PO SCH (09:54)
[2016-08-15] MEDS: Lisinopril TAB* 5 MG PO SCH (09:54)
[2016-08-15] MEDS: Metoprolol Succinate XL TAB* 25 MG PO SCH (09:54)
[2016-08-15] MEDS: Nicotine PATCH 21 MG/24 HR* PATCH TRANSDERM SCH (09:54)
[2016-08-15] MEDS: Ticagrelor* 90 MG TAB PO SCH ×2 (09:54→21:12)
--- NOTE | 2016-08-15 11:35 | PN ---
Subjective - Subjective Service Type: 73351 Hosp care 25 min moderate complexity Subjective: The patient continues to be extremely irritable, staying in his room, easily upset with staff and his spouse. He insists that he is not getting the medications he's supposed to be taking from home. He also complains of severe tooth pain from tooth decay and insists that several dentists have told him he cannot have extractions because of bleeding risks from his heart medications. I spoke with his , Mar Quiroga ([phone]), who indicates he almost always has an irritable edge, but rarely this severely. She does not believe he would attempt to harm himself again, indicating that this overdose episode was the first time he'd ever tried anything like this. She blames herself, stating he's been annoyed with her. She indicates that he can be verbally abusive but not physically. Diana reports to me that he has been diagnosed with bipolarity before. Objective - Appearance Appearance: Well Developed/Nourished Dysmorphic Features: No Hygiene: Normal Grooming: Fairly Well Kept - Behavior Psychomotor Activities: Normal Exhibits Abnormal Movement: No - Attitude and Relatedness Attitude and Relatedness: Hostile Eye Contact: Good - Speech Quality: Pressured Latencies: Normal Quantity: Terse - Mood Patient's Decription of Mood: "Angry" - Affect Observed Affect: Labile Affect Consistent with: Dysphoria - Thought Process Patient's Thought Process: Coherent Thought Content: No Passive Wish, No Suicidal Planning, No Homicidal Ideation, No Paranoid Ideation - Sensorium Experiencing Hallucinations: No, Sensorium is Clear Type of Hallucinations: Visual: No, Auditory: No, Command: No - Level of Consciousness Level of Consciousness: Agitated Orientation: Yes Intact, Yes Orientated to Time, Yes Orientated to Place, Yes Orientated to Person - Impulse Control Impulse Control: Poor - Insight and Judgement Insight and Judgement: Impaired - Group Participation Particating in Group Activities: No - Medication Management Medication Management Adherence: Partial Assessment - Assessment Merits Inpatient Hospitalization: For Immediate Safety, For Stabilization Inpatient DSM-IV Dx: Bipolar I, mixed phase, severe without psychosis Clinical Impression: 40 y.o. , white male with a history of bipolarity and cannabis abuse who is involuntarily admitted secondary to a suicide attempt in which he swallowed a handful of BP medications. Plan - Plan Treatment Plan: Name: DIANA QUIROGA Birthdate: 1975 [id number] The patient is demonstrating symptoms of both tiny and depression. We will start him on a trial of depakote 500mg PO BID and augment this with quetiapine 50mg PO qhs. I cannot offer him inpatient dentistry but we can treat his pain with prn tramadol. The pharmacy has agreed to give him brand name Crestor in lieu of switching him to formulary lipitor. Will continue to treat. Continued Medication Management: Start Medication Medications: Current Medications Amlodipine Besylate (Norvasc Tab*) 2.5 mg PO DAILY [facility] Last Admin: 08/15/16 09:54 Dose: 2.5 mg Buspirone HCl (Buspar Tab*) 10 mg PO TID PRN PRN Reason: ANXIETY Last Admin: 08/14/16 19:42 Dose: 10 mg Chlorpromazine HCl (Thorazine Tab*) 50 mg PO Q4H PRN PRN Reason: AGITATION Last Admin: 08/14/16 19:42 Dose: 50 mg Device (Nicotine Mouth Piece*) 1 each INH .CARTRIDGE [facility] Last Admin: 08/13/16 17:48 Dose: 1 each Divalproex Sodium (Depakote Dr Tab(*)) 500 mg PO BID [facility] Lisinopril (Prinivil Tab*) 5 mg PO DAILY [facility] Last Admin: 08/15/16 09:54 Dose: 5 mg Metoprolol Succinate (Toprol Xl Tab*) 25 mg PO DAILY [facility] Last Admin: 08/15/16 09:54 Dose: 25 mg Nicotine (Nicotine Inhaler*) 10 mg INH Q2H PRN PRN Reason: CRAVING Last Admin: 08/13/16 17:48 Dose: 10 mg Nicotine (Nicotine Patch 21 Mg/24 Hr*) 1 patch TRANSDERM DAILY [facility] Last Admin: 08/15/16 09:54 Dose: 1 patch Nicotine Polacrilex (Nicotine Gum*) 2 mg PO Q2H PRN PRN Reason: CRAVING Nitroglycerin (Nitroglycerin Tab 0.4 Mg*) 0.4 mg SL Q5M PRN PRN Reason: PAIN - CHEST Omeprazole (Prilosec Cap*) 20 mg PO DAILY [facility] Last Admin: 08/15/16 09:54 Dose: 20 mg Pharmacy Profile Note (Nicotine Patch Removal Note*) 1 note PATCH OFF 2100 [facility] Last Admin: 08/14/16 21:37 Dose: Not Given Quetiapine Fumarate (Seroquel Tab*) 50 mg PO BEDTIME [facility] Rosuvastatin Calcium (Crestor (Nf)) 40 mg PO BEDTIME [facility] Ticagrelor (Brilinta*) 90 mg PO BID [facility] Last Admin: 08/15/16 09:54 Dose: Not Given Tramadol HCl (Ultram*) 100 mg PO Q6H PRN PRN Reason: PAIN (DENTAL) - Discharge Plan Discharge Plan: Inpatient Hospitalization
[2016-08-15] MEDS: traMADol TAB* 50 MG PO PRN (11:55)
[2016-08-15] MEDS: Divalproex DR TAB(*) 500 MG PO SCH ×2 (11:57→21:11)
[2016-08-15] MEDS ORDERED: Rosuvastatin (NF) 10 MG TAB PO SCH (21:00)
[2016-08-15] MEDS: QUEtiapine TAB* 25 MG PO SCH (21:12)
[2016-08-15] MEDS: Nicotine Patch Removal NOTE PATCH OFF SCH (22:22)
[2016-08-16] MEDS: Nicotine PATCH 21 MG/24 HR* PATCH TRANSDERM SCH (08:56)
[2016-08-16] MEDS: amLODIPine TAB* 5 MG PO SCH (08:57)
[2016-08-16] MEDS: Metoprolol Succinate XL TAB* 25 MG PO SCH (08:57)
[2016-08-16] MEDS: Divalproex DR TAB(*) 500 MG PO SCH ×2 (08:57→20:29)
[2016-08-16] MEDS: Omeprazole CAP* 20 MG PO SCH (08:57)
[2016-08-16] MEDS: Lisinopril TAB* 5 MG PO SCH (08:57)
[2016-08-16] MEDS: Ticagrelor* 90 MG TAB PO SCH ×2 (08:57→20:29)
--- NOTE | 2016-08-16 12:30 | PN ---
Subjective - Subjective Service Type: 44616 Hosp care 25 min moderate complexity Subjective: The patient remains irritable and isolative. He states that "5% of my problem is financial and 95% of it is my ." He indicates that she sleeps all day because she works third shift in a factory and refuses his advances, not allowing him to kiss, hug or have any physical contact with her. He accuses her of infidelity, although she denies it to him and he has no proof of it. He continues to complain of tooth pain and discomfort, stating that multiple dentists have told him they cannot extract his rotten teeth without him going off Brilinta. "My cardiovascular technologist, Dr. Chatman, won't let me go off it for even a day!" A call to Dr. Chatman's office resulted in voicemail. The patient remains vague about further thoughts of suicide. "What else am I gonna do?" He is taking meds as prescribed but will not ask for prn's. Objective - Appearance Appearance: Well Developed/Nourished Dysmorphic Features: No Hygiene: Normal Grooming: Fairly Well Kept - Behavior Psychomotor Activities: Normal Exhibits Abnormal Movement: No - Attitude and Relatedness Attitude and Relatedness: Hostile Eye Contact: Good - Speech Quality: Pressured Latencies: Short Quantity: Terse - Mood Patient's Decription of Mood: "Irritable" - Affect Observed Affect: Tense Affect Consistent with: Dysphoria - Thought Process Patient's Thought Process: Coherent Thought Content: Yes Passive Wish, No Suicidal Planning, No Homicidal Ideation, No Paranoid Ideation - Sensorium Experiencing Hallucinations: No, Sensorium is Clear Type of Hallucinations: Visual: No, Auditory: No, Command: No - Level of Consciousness Level of Consciousness: Alert Orientation: Yes Intact, Yes Orientated to Time, Yes Orientated to Place, Yes Orientated to Person - Impulse Control Impulse Control: Poor - Insight and Judgement Insight and Judgement: Impaired - Group Participation Particating in Group Activities: No - Medication Management Medication Management Adherence: Yes Assessment - Assessment Merits Inpatient Hospitalization: For Immediate Safety, For Stabilization Inpatient DSM-IV Dx: Bipolar I, mixed phase, severe without psychosis Clinical Impression: 40 y.o. , white male with a history of bipolarity and cannabis abuse who is involuntarily admitted secondary to a suicide attempt in which he swallowed a handful of BP medications. Plan - Plan Treatment Plan: Name: DIANA QUIROGA Birthdate: 1975 [id number] The patient is demonstrating symptoms of both tiny and depression. We have started him on depakote 500mg PO BID and quetiapine 50mg PO qhs. Chronic tooth pain, secondary to significant tooth decay, is a significant stressor. I cannot offer him inpatient dentistry but we can treat his pain with prn tramadol. I've called his cardiovascular technologist, Dr. Chatman, to see if tooth extraction is indeed contraindicated. Would like his to come in for family meeting. Continued Medication Management: Start Medication Medications: Current Medications Amlodipine Besylate (Norvasc Tab*) 2.5 mg PO DAILY [facility] Last Admin: 08/16/16 08:57 Dose: 2.5 mg Buspirone HCl (Buspar Tab*) 10 mg PO TID PRN PRN Reason: ANXIETY Last Admin: 08/14/16 19:42 Dose: 10 mg Chlorpromazine HCl (Thorazine Tab*) 50 mg PO Q4H PRN PRN Reason: AGITATION Last Admin: 08/14/16 19:42 Dose: 50 mg Device (Nicotine Mouth Piece*) 1 each INH .CARTRIDGE [facility] Last Admin: 08/13/16 17:48 Dose: 1 each Divalproex Sodium (Depakote Dr Tab(*)) 500 mg PO BID [facility] Last Admin: 08/16/16 08:57 Dose: 500 mg Lisinopril (Prinivil Tab*) 5 mg PO DAILY [facility] Last Admin: 08/16/16 08:57 Dose: 5 mg Metoprolol Succinate (Toprol Xl Tab*) 25 mg PO DAILY [facility] Last Admin: 08/16/16 08:57 Dose: 25 mg Nicotine (Nicotine Inhaler*) 10 mg INH Q2H PRN PRN Reason: CRAVING Last Admin: 08/13/16 17:48 Dose: 10 mg Nicotine (Nicotine Patch 21 Mg/24 Hr*) 1 patch TRANSDERM DAILY [facility] Last Admin: 08/16/16 08:56 Dose: Not Given Nicotine Polacrilex (Nicotine Gum*) 2 mg PO Q2H PRN PRN Reason: CRAVING Nitroglycerin (Nitroglycerin Tab 0.4 Mg*) 0.4 mg SL Q5M PRN PRN Reason: PAIN - CHEST Omeprazole (Prilosec Cap*) 20 mg PO DAILY [facility] Last Admin: 08/16/16 08:57 Dose: 20 mg Pharmacy Profile Note (Nicotine Patch Removal Note*) 1 note PATCH OFF 2099 [facility] Last Admin: 08/15/16 22:22 Dose: Not Given Quetiapine Fumarate (Seroquel Tab*) 50 mg PO BEDTIME [facility] Last Admin: 08/15/16 21:12 Dose: 50 mg Rosuvastatin Calcium (Crestor (Nf)) 40 mg PO BEDTIME [facility] Last Admin: 08/15/16 21:11 Dose: 40 mg Ticagrelor (Brilinta*) 90 mg PO BID [facility] Last Admin: 08/16/16 08:57 Dose: 90 mg Tramadol HCl (Ultram*) 100 mg PO Q6H PRN PRN Reason: PAIN (DENTAL) Last Admin: 08/15/16 11:55 Dose: 100 mg - Discharge Plan Discharge Plan: Inpatient Hospitalization
[2016-08-16] MEDS: traMADol TAB* 50 MG PO PRN ×2 (13:53→22:01)
[2016-08-16] MEDS: CMCS: Rosuvastatin (NF) 20 MG TAB PO SCH (20:29)
[2016-08-16] MEDS: QUEtiapine TAB* 25 MG PO SCH (20:29)
[2016-08-16] MEDS: Amoxicillin (*) 875 MG TAB PO SCH (20:29)
[2016-08-16] MEDS: chlorproMAZINE TAB* 50 MG PO PRN (20:29)
[2016-08-16] MEDS: Nicotine Patch Removal NOTE PATCH OFF SCH (20:32)
[2016-08-16] MEDS ORDERED: Atorvastatin* 80 MG TAB PO SCH (21:00)
[2016-08-17] MEDS: Metoprolol Succinate XL TAB* 25 MG PO SCH (08:45)
[2016-08-17] MEDS: Omeprazole CAP* 20 MG PO SCH (08:45)
[2016-08-17] MEDS: amLODIPine TAB* 5 MG PO SCH (08:45)
[2016-08-17] MEDS: Ticagrelor* 90 MG TAB PO SCH ×2 (08:45→20:11)
[2016-08-17] MEDS: Lisinopril TAB* 5 MG PO SCH (08:46)
[2016-08-17] MEDS: Amoxicillin (*) 875 MG TAB PO SCH ×2 (08:46→20:11)
[2016-08-17] MEDS: Divalproex DR TAB(*) 500 MG PO SCH ×2 (08:46→20:11)
[2016-08-17] MEDS: Nicotine PATCH 21 MG/24 HR* PATCH TRANSDERM SCH (09:29)
[2016-08-17] MEDS: chlorproMAZINE TAB* 50 MG PO PRN ×2 (10:52→16:07)
[2016-08-17] MEDS: busPIRone TAB* 10 MG PO PRN (10:52)
--- NOTE | 2016-08-17 15:09 | PN ---
Subjective - Subjective Service Type: 40319 [facility] Subjective: Patient and his Mar are seen, along with OCTAVIO Miroslava Rayna, for family meeting. Patient very tearful and emotive, accusing of pushing him away, not allowing intimacy, either hugging, kissing or sex. At one point he stormed out of the room, laying on his bed, weeping. Convinced to come back in, he continues to yell at her at times for purposely working third shift hours and other behaviors that reduce their contact with each other. For her part she asks several times why she would choose to be intimate, when he is so irritable and hostile with her. The patient still cannot contract for safety and no resolution is come to between he and his spouse. Objective - Appearance Appearance: Well Developed/Nourished Dysmorphic Features: No Hygiene: Normal Grooming: Fairly Well Kept - Behavior Psychomotor Activities: Normal Exhibits Abnormal Movement: No - Attitude and Relatedness Attitude and Relatedness: Hostile Eye Contact: Poor - Speech Quality: Pressured Latencies: Short Quantity: Terse - Mood Patient's Decription of Mood: "Terrible" - Affect Observed Affect: Labile Affect Consistent with: Dysphoria - Thought Process Patient's Thought Process: Coherent Thought Content: Yes Passive Wish, No Suicidal Planning, No Homicidal Ideation, No Paranoid Ideation - Sensorium Experiencing Hallucinations: No, Sensorium is Clear Type of Hallucinations: Visual: No, Auditory: No, Command: No - Level of Consciousness Level of Consciousness: Alert Orientation: Yes Intact, Yes Orientated to Time, Yes Orientated to Place, Yes Orientated to Person - Impulse Control Impulse Control: Poor - Insight and Judgement Insight and Judgement: Impaired - Group Participation Particating in Group Activities: No - Medication Management Medication Management Adherence: Yes Assessment - Assessment Merits Inpatient Hospitalization: For Immediate Safety, For Stabilization Inpatient DSM-IV Dx: Bipolar I, mixed phase, severe without psychosis Clinical Impression: 40 y.o. , white male with a history of bipolarity and cannabis abuse who is involuntarily admitted secondary to a suicide attempt in which he swallowed a handful of BP medications. Plan - Plan Treatment Plan: Name: DIANA QUIROGA Birthdate: 1975 [id number] The patient is demonstrating symptoms of both tiny and depression. We have started him on depakote 500mg PO BID and quetiapine 50mg PO qhs. Chronic tooth pain, secondary to significant tooth decay, is a significant stressor. I cannot offer him inpatient dentistry but we can treat his pain with prn tramadol. I've called his job forwarder, Dr. Chatman, to see if tooth extraction is indeed contraindicated and this clinician will be at the hospital on Saturday. Family meeting was very intense. May require another one next week. Continued Medication Management: Start Medication Medications: Current Medications Amlodipine Besylate (Norvasc Tab*) 2.5 mg PO DAILY [facility] Last Admin: 08/17/16 08:45 Dose: 2.5 mg Amoxicillin (Amoxicillin (*)) 875 mg PO BID [facility] Last Admin: 08/17/16 08:46 Dose: 875 mg Buspirone HCl (Buspar Tab*) 10 mg PO TID PRN PRN Reason: ANXIETY Last Admin: 08/17/16 10:52 Dose: 10 mg Chlorpromazine HCl (Thorazine Tab*) 50 mg PO Q4H PRN PRN Reason: AGITATION Last Admin: 08/17/16 10:52 Dose: 50 mg Device (Nicotine Mouth Piece*) 1 each INH .CARTRIDGE [facility] Last Admin: 08/13/16 17:48 Dose: 1 each Divalproex Sodium (Depakote Dr Tab(*)) 500 mg PO BID [facility] Last Admin: 08/17/16 08:46 Dose: 500 mg Lisinopril (Prinivil Tab*) 5 mg PO DAILY [facility] Last Admin: 08/17/16 08:46 Dose: 5 mg Metoprolol Succinate (Toprol Xl Tab*) 25 mg PO DAILY [facility] Last Admin: 08/17/16 08:45 Dose: 25 mg Nicotine (Nicotine Inhaler*) 10 mg INH Q2H PRN PRN Reason: CRAVING Last Admin: 08/13/16 17:48 Dose: 10 mg Nicotine (Nicotine Patch 21 Mg/24 Hr*) 1 patch TRANSDERM DAILY [facility] Last Admin: 08/17/16 09:29 Dose: Not Given Nicotine Polacrilex (Nicotine Gum*) 2 mg PO Q2H PRN PRN Reason: CRAVING Nitroglycerin (Nitroglycerin Tab 0.4 Mg*) 0.4 mg SL Q5M PRN PRN Reason: PAIN - CHEST Omeprazole (Prilosec Cap*) 20 mg PO DAILY [facility] Last Admin: 08/17/16 08:45 Dose: 20 mg Pharmacy Profile Note (Nicotine Patch Removal Note*) 1 note PATCH OFF 2099 [facility] Last Admin: 08/16/16 20:32 Dose: Not Given Quetiapine Fumarate (Seroquel Tab*) 50 mg PO BEDTIME [facility] Last Admin: 08/16/16 20:29 Dose: 50 mg Rosuvastatin Calcium (Crestor (Nf)) 40 mg PO BEDTIME [facility] Last Admin: 08/16/16 20:29 Dose: 40 mg Ticagrelor (Brilinta*) 90 mg PO BID [facility] Last Admin: 08/17/16 08:45 Dose: 90 mg Tramadol HCl (Ultram*) 100 mg PO Q6H PRN PRN Reason: PAIN (DENTAL) Last Admin: 08/16/16 22:01 Dose: 100 mg - Discharge Plan Discharge Plan: Inpatient Hospitalization
[2016-08-17] MEDS: QUEtiapine TAB* 25 MG PO SCH (20:11)
[2016-08-17] MEDS: CMCS: Rosuvastatin (NF) 20 MG TAB PO SCH (20:11)
[2016-08-17] MEDS: Nicotine Patch Removal NOTE PATCH OFF SCH (20:32)
[2016-08-18] MEDS: Amoxicillin (*) 875 MG TAB PO SCH ×2 (08:14→20:13)
[2016-08-18] MEDS: Omeprazole CAP* 20 MG PO SCH (08:14)
[2016-08-18] MEDS: Metoprolol Succinate XL TAB* 25 MG PO SCH (08:14)
[2016-08-18] MEDS: chlorproMAZINE TAB* 50 MG PO PRN ×2 (08:14→20:12)
[2016-08-18] MEDS: Ticagrelor* 90 MG TAB PO SCH ×2 (08:14→20:13)
[2016-08-18] MEDS: busPIRone TAB* 10 MG PO PRN ×2 (08:14→20:12)
[2016-08-18] MEDS: amLODIPine TAB* 5 MG PO SCH (08:15)
[2016-08-18] MEDS: Lisinopril TAB* 5 MG PO SCH (08:15)
[2016-08-18] MEDS: Divalproex DR TAB(*) 500 MG PO SCH ×2 (08:15→20:13)
[2016-08-18] MEDS: Nicotine PATCH 21 MG/24 HR* PATCH TRANSDERM SCH (10:34)
--- NOTE | 2016-08-18 16:33 | PN ---
Subjective - Subjective Service Type: 91818 Hosp care 15 min low complexity Subjective: I reviewed Dr Carpenter's sign-out and notes since Saturday afternoon. He requested thorazine prns in the last day. Staff note he slept 6.5 hrs last night. Pt found in the milieu talking with other pts. We briefly reviewed events leading to hospitalization. He was able to review diagnostic and medication treatment plan. Mood is "not too bad" and rates depression as 2/10 (10 being the worst) and anxiety is "up and down." He notes stress/agitation associated with yesterday's family meeting. He preemptively took thorazine and buspar prn first thing this am. Appetite and energy are stable. Reports poor, restless sleep last night. He notes continued back and tooth pain, but tolerable with prns. He denies any medication side effects. He became heated when reviewing complaints about dental treatment, cardiac history and interactions with insurance companies.He denies SI or thoughts of self-harm. He denies thoughts of harming others. Objective - Appearance Appearance: Well Developed/Nourished Dysmorphic Features: No Grooming: Fairly Well Kept - Behavior Psychomotor Activities: Normal - animated when talking Exhibits Abnormal Movement: No - Attitude and Relatedness Attitude and Relatedness: Irritable Eye Contact: Good - intense - Speech Quality: Pressured Latencies: Short Quantity: Copious - Mood Patient's Decription of Mood: "not too bad" - Affect Observed Affect: Tense Affect Consistent with: Dysphoria - Thought Process Patient's Thought Process: Coherent, Tangential, Circumstantial Thought Content: No Passive Wish, No Suicidal Planning, No Homicidal Ideation, No Paranoid Ideation - Sensorium Experiencing Hallucinations: No, Sensorium is Clear - Level of Consciousness Level of Consciousness: Alert Orientation: Yes Intact, Yes Orientated to Time, Yes Orientated to Place, Yes Orientated to Person - Impulse Control Impulse Control: Tenuous - Insight and Judgement Insight and Judgement: Fair - Medication Management Medication Management Adherence: Yes Assessment - Assessment Merits Inpatient Hospitalization: To Initiate Treatment, For Ongoing Evaluation , Consolidate Improvements, For Discharge Planning, Pending Safe DC Plan Inpatient DSM-IV Dx: Bipolar I, mixed phase, severe without psychosis Clinical Impression: 40yo male with a hx of bipolar, cannabis use d/o and CAD, involuntarily admitted due to suicide attempt by overdose. He is tolerating medications with reduction in distress. Plan - Plan Treatment Plan: Name: DIANA QUIROGA Birthdate: 1975 [id number] - to increase quetiapine to 100mg po qhs due to limited success last night - continue other meds Medications: Current Medications Amlodipine Besylate (Norvasc Tab*) 2.5 mg PO DAILY [facility] Last Admin: 08/18/16 08:15 Dose: 2.5 mg Amoxicillin (Amoxicillin (*)) 875 mg PO BID [facility] Last Admin: 08/18/16 08:14 Dose: 875 mg Buspirone HCl (Buspar Tab*) 10 mg PO TID PRN PRN Reason: ANXIETY Last Admin: 08/18/16 08:14 Dose: 10 mg Chlorpromazine HCl (Thorazine Tab*) 50 mg PO Q4H PRN PRN Reason: AGITATION Last Admin: 08/18/16 08:14 Dose: 50 mg Device (Nicotine Mouth Piece*) 1 each INH .CARTRIDGE [facility] Last Admin: 08/13/16 17:48 Dose: 1 each Divalproex Sodium (Depakote Dr Tab(*)) 500 mg PO BID [facility] Last Admin: 08/18/16 08:15 Dose: 500 mg Lisinopril (Prinivil Tab*) 5 mg PO DAILY [facility] Last Admin: 08/18/16 08:15 Dose: 5 mg Metoprolol Succinate (Toprol Xl Tab*) 25 mg PO DAILY [facility] Last Admin: 08/18/16 08:14 Dose: 25 mg Nicotine (Nicotine Inhaler*) 10 mg INH Q2H PRN PRN Reason: CRAVING Last Admin: 08/13/16 17:48 Dose: 10 mg Nicotine (Nicotine Patch 21 Mg/24 Hr*) 1 patch TRANSDERM DAILY [facility] Last Admin: 08/18/16 10:34 Dose: Not Given Nicotine Polacrilex (Nicotine Gum*) 2 mg PO Q2H PRN PRN Reason: CRAVING Nitroglycerin (Nitroglycerin Tab 0.4 Mg*) 0.4 mg SL Q5M PRN PRN Reason: PAIN - CHEST Omeprazole (Prilosec Cap*) 20 mg PO DAILY [facility] Last Admin: 08/18/16 08:14 Dose: 20 mg Pharmacy Profile Note (Nicotine Patch Removal Note*) 1 note PATCH OFF 2100 [facility] Last Admin: 08/17/16 20:32 Dose: 1 note Quetiapine Fumarate (Seroquel Tab*) 50 mg PO BEDTIME [facility] Last Admin: 08/17/16 20:11 Dose: 50 mg Rosuvastatin Calcium (Crestor (Nf)) 40 mg PO BEDTIME [facility] Last Admin: 08/17/16 20:11 Dose: 40 mg Ticagrelor (Brilinta*) 90 mg PO BID [facility] Last Admin: 08/18/16 08:14 Dose: 90 mg Tramadol HCl (Ultram*) 100 mg PO Q6H PRN PRN Reason: PAIN (DENTAL) Last Admin: 08/16/16 22:01 Dose: 100 mg
[2016-08-18] MEDS: CMCS: Rosuvastatin (NF) 20 MG TAB PO SCH (20:13)
[2016-08-18] MEDS: QUEtiapine TAB* 100 MG PO SCH (20:13)
[2016-08-19] MEDS: Amoxicillin (*) 875 MG TAB PO SCH ×2 (07:59→20:09)
[2016-08-19] MEDS: amLODIPine TAB* 5 MG PO SCH (08:00)
[2016-08-19] MEDS: Ticagrelor* 90 MG TAB PO SCH ×2 (08:00→20:09)
[2016-08-19] MEDS: Omeprazole CAP* 20 MG PO SCH (08:00)
[2016-08-19] MEDS: Metoprolol Succinate XL TAB* 25 MG PO SCH (08:02)
[2016-08-19] MEDS: Lisinopril TAB* 5 MG PO SCH (08:02)
[2016-08-19] MEDS: Divalproex DR TAB(*) 500 MG PO SCH ×2 (08:02→20:09)
[2016-08-19] MEDS: busPIRone TAB* 10 MG PO PRN ×2 (08:03→20:09)
[2016-08-19 08:19] LABS: HDL Cholesterol 57.8 mg/dL
[2016-08-19] MEDS: Nicotine PATCH 21 MG/24 HR* PATCH TRANSDERM SCH (10:57)
[2016-08-19] MEDS: Nicotine Patch Removal NOTE PATCH OFF SCH ×2 (16:54→20:38)
[2016-08-19] MEDS: traMADol TAB* 50 MG PO PRN (20:08)
[2016-08-19] MEDS: QUEtiapine TAB* 100 MG PO SCH (20:09)
[2016-08-19] MEDS: chlorproMAZINE TAB* 50 MG PO PRN (20:09)
[2016-08-19] MEDS: CMCS: Rosuvastatin (NF) 20 MG TAB PO SCH (20:10)
[2016-08-20] MEDS: Metoprolol Succinate XL TAB* 25 MG PO SCH (07:58)
[2016-08-20] MEDS: Amoxicillin (*) 875 MG TAB PO SCH ×2 (07:58→20:05)
[2016-08-20] MEDS: Ticagrelor* 90 MG TAB PO SCH ×2 (07:58→20:06)
[2016-08-20] MEDS: Lisinopril TAB* 5 MG PO SCH (07:58)
[2016-08-20] MEDS: Divalproex DR TAB(*) 500 MG PO SCH ×2 (07:58→20:05)
[2016-08-20] MEDS: amLODIPine TAB* 5 MG PO SCH (07:58)
[2016-08-20] MEDS: Omeprazole CAP* 20 MG PO SCH (07:59)
[2016-08-20] MEDS: Nicotine PATCH 21 MG/24 HR* PATCH TRANSDERM SCH (08:01)
[2016-08-20 08:14] VITALS: BP 112/81
--- NOTE | 2016-08-20 15:24 | PN ---
Subjective - Subjective Service Type: 27520 Hosp care 25 min moderate complexity Subjective: Diana displays marked improvement today, when compared with last session on Saturday before the weekend. He has a bright affect and is observed socializing with peers and cooperating with staff, including attending and participating in group programming. He denies SI and feels that he would benefit from discharge home tomorrow. He reports talking with his boss at work and is happy to report that he still has a job, and will be getting work-related health-care benefits at the end of the month when his medicaid expires. The patient had several visits with his over the weekend with much less hostility. I spoke with his plumber, Dr. Chatman, this morning, who would not support even a temporary discontinuation of his anti-platelet therapies, but informed me that numerous dentists in the community will commonly work around this issue by completing tooth extractions on a limited, one to two tooth at a time, basis. The patient is agreeable with us making a dental follow up appointment in the community. Objective - Appearance Appearance: Well Developed/Nourished Dysmorphic Features: No Hygiene: Normal Grooming: Well Kept - Behavior Psychomotor Activities: Normal Exhibits Abnormal Movement: No - Attitude and Relatedness Attitude and Relatedness: Cooperative Eye Contact: Good - Speech Quality: Unpressured Latencies: Normal Quantity: Appropriate - Mood Patient's Decription of Mood: "Good" - Affect Observed Affect: Good Affect Consistent with: Euthymia - Thought Process Patient's Thought Process: Coherent Thought Content: No Passive Wish, No Suicidal Planning, No Homicidal Ideation, No Paranoid Ideation - Sensorium Experiencing Hallucinations: No, Sensorium is Clear Type of Hallucinations: Visual: No, Auditory: No, Command: No - Level of Consciousness Level of Consciousness: Alert Orientation: Yes Intact, Yes Orientated to Time, Yes Orientated to Place, Yes Orientated to Person - Impulse Control Impulse Control: Intact - Insight and Judgement Insight and Judgement: Good - Group Participation Particating in Group Activities: Yes - Medication Management Medication Management Adherence: Yes Assessment - Assessment Merits Inpatient Hospitalization: Consolidate Improvements, Pending Safe DC Plan Inpatient DSM-IV Dx: Bipolar I, mixed phase, severe without psychosis Clinical Impression: 40 y.o. , white male with a history of bipolarity and cannabis abuse who is involuntarily admitted secondary to a suicide attempt in which he swallowed a handful of BP medications. Plan - Plan Treatment Plan: Name: DIANA QUIROGA Birthdate: 1975 [id number] The patient has improved markedly and his suicidality has resolved under inpatient care. We have started him on depakote 500mg PO BID and quetiapine 100mg PO qhs, and his valproic acid level in therapeutic. He's still complaining of anxiety, so we will increase prn buspirone to 15mg TID. Chronic tooth pain has improved with the use of amoxicillin and prn tramadol and we will schedule him a dental f/u appointment at [facility]. We will schedule his d/c for tomorrow and meet with his , Mar, one last time before he leaves. Continued Medication Management: Different Medication Medications: Current Medications Amlodipine Besylate (Norvasc Tab*) 2.5 mg PO DAILY [facility] Last Admin: 08/20/16 07:58 Dose: 2.5 mg Amoxicillin (Amoxicillin (*)) 875 mg PO BID [facility] Last Admin: 08/20/16 07:58 Dose: 875 mg Buspirone HCl (Buspar Tab*) 15 mg PO TID PRN PRN Reason: ANXIETY Chlorpromazine HCl (Thorazine Tab*) 50 mg PO Q4H PRN PRN Reason: AGITATION Last Admin: 08/19/16 20:09 Dose: 50 mg Device (Nicotine Mouth Piece*) 1 each INH .CARTRIDGE [facility] Last Admin: 08/13/16 17:48 Dose: 1 each Divalproex Sodium (Depakote Dr Tab(*)) 500 mg PO BID [facility] Last Admin: 08/20/16 07:58 Dose: 500 mg Lisinopril (Prinivil Tab*) 5 mg PO DAILY [facility] Last Admin: 08/20/16 07:58 Dose: 5 mg Metoprolol Succinate (Toprol Xl Tab*) 25 mg PO DAILY [facility] Last Admin: 08/20/16 07:58 Dose: 25 mg Nicotine (Nicotine Inhaler*) 10 mg INH Q2H PRN PRN Reason: CRAVING Last Admin: 08/13/16 17:48 Dose: 10 mg Nicotine (Nicotine Patch 21 Mg/24 Hr*) 1 patch TRANSDERM DAILY [facility] Last Admin: 08/20/16 08:01 Dose: Not Given Nicotine Polacrilex (Nicotine Gum*) 2 mg PO Q2H PRN PRN Reason: CRAVING Nitroglycerin (Nitroglycerin Tab 0.4 Mg*) 0.4 mg SL Q5M PRN PRN Reason: PAIN - CHEST Omeprazole (Prilosec Cap*) 20 mg PO DAILY [facility] Last Admin: 08/20/16 07:59 Dose: 20 mg Pharmacy Profile Note (Nicotine Patch Removal Note*) 1 note PATCH OFF 2100 [facility] Last Admin: 08/19/16 20:38 Dose: Not Given Quetiapine Fumarate (Seroquel Tab*) 100 mg PO BEDTIME [facility] Last Admin: 08/19/16 20:09 Dose: 100 mg Rosuvastatin Calcium (Crestor (Nf)) 40 mg PO BEDTIME [facility] Last Admin: 08/19/16 20:10 Dose: 40 mg Ticagrelor (Brilinta*) 90 mg PO BID [facility] Last Admin: 08/20/16 07:58 Dose: 90 mg Tramadol HCl (Ultram*) 100 mg PO Q6H PRN PRN Reason: PAIN (DENTAL) Last Admin: 08/19/16 20:08 Dose: 100 mg - Discharge Plan Discharge Plan: Outpatient Follow Up Outpatient Program: [facility] Lab Results - Lab Results Lab Results: 08/19/16 08/19/16 07:50 07:50 Hemoglobin A1c 5.7 Triglycerides 62 Cholesterol 171 LDL Cholesterol 101 HDL Cholesterol 57.8 Valproic Acid 64.0
[2016-08-20] MEDS: Nicotine Patch Removal NOTE PATCH OFF SCH (20:05)
[2016-08-20] MEDS: QUEtiapine TAB* 100 MG PO SCH (20:06)
[2016-08-20] MEDS: CMCS: Rosuvastatin (NF) 20 MG TAB PO SCH (20:06)
[2016-08-20] MEDS: busPIRone TAB* 15 MG PO PRN (20:06)
[2016-08-20] MEDS: chlorproMAZINE TAB* 50 MG PO PRN (20:07)
[2016-08-21] MEDS: amLODIPine TAB* 5 MG PO SCH (08:32)
[2016-08-21] MEDS: Amoxicillin (*) 875 MG TAB PO SCH (08:33)
[2016-08-21] MEDS: Metoprolol Succinate XL TAB* 25 MG PO SCH (08:33)
[2016-08-21] MEDS: Omeprazole CAP* 20 MG PO SCH (08:33)
[2016-08-21] MEDS: Divalproex DR TAB(*) 500 MG PO SCH (08:33)
[2016-08-21] MEDS: Lisinopril TAB* 5 MG PO SCH (08:33)
[2016-08-21] MEDS: Nicotine PATCH 21 MG/24 HR* PATCH TRANSDERM SCH (08:34)
[2016-08-21] MEDS: Ticagrelor* 90 MG TAB PO SCH (08:34)
[2016-08-21] MEDS: chlorproMAZINE TAB* 50 MG PO PRN (12:08)
[2016-08-21] MEDS: busPIRone TAB* 15 MG PO PRN (12:08)
--- NOTE | 2016-08-22 02:07 | DS ---
DISCHARGE SUMMARY: DATE OF ADMISSION: 08/13/16 DATE OF DISCHARGE: 08/21/16 DISCHARGE DIAGNOSES: As follows: Quincy I: Bipolar disorder, most recent episode mixed severe without psychotic features, cannabis use disorder. Quincy II: Deferred. Quincy III: Coronary artery disease, chronic obstructive pulmonary disease, gastroesophageal reflux disease, hyperlipidemia, hypertension, acute renal insufficiency. Quincy IV: Severe financial, occupational, and primary support stressors. Quincy V: At the time of admission was 40 and at the time of discharge is 60. CONDITION AT THE TIME OF DISCHARGE: Stable. The patient is calm, cooperative. His demeanor is significantly more interactive and less irritable. He is taking responsibility for his behaviors. He has been calm and cooperative with the treatment team going to groups, safe on all checks. He is future oriented, indicating that he is returning to work and looking forward to celebrating his birthday with his tomorrow. There were 2 acute stressors leading up to this hospitalization, both of which have been addressed by the treatment team. The first is his severe tooth pain. We have spoken with his date pitter and gotten clearance for him to receive dental treatment in the community for tooth extraction, which is badly needed. This appointment is established for after the time of discharge. The other stressor would be interpersonal and relational problems with his . We have had her visit for family meeting and work on the intimacy issues between the two of them and they both feel that the relationship is in an improved place compared to the time of admission. The patient denies any thoughts of hurting himself or others, and we have seen no evidence of violent or self destructive behavior on our unit. MENTAL STATUS EXAM: At the time of discharge, the patient is a middle-aged white male, wearing a pair of shorts and a T-shirt and glasses. He has a mustache. He is fairly well groomed. He has good eye contact and is easy to establish a rapport with. Speech has a normal rate, tone, and volume. Mood is euthymic with a bright affect. Thought process is linear. Thought content is significant for his desire to be discharged from the hospital so that he can go out with his for his birthday tomorrow. He denies suicidal or homicidal ideations. He denies auditory or visual hallucinations. Insight and judgment appear to be good given the fact that he is willing to follow up with outpatient treatment. Cognitively, he is awake and alert with what would appear to be an average intellect. DISCHARGE INSTRUCTIONS: To the patient are as follows: A. Medications: 1. The patient is to take amoxicillin 875 mg p.o. b.i.d. for the next 7 days. 2. Depakote 500 mg p.o. b.i.d. 3. Lisinopril 5 mg p.o. b.i.d. 4. Metoprolol XL 25 mg p.o. daily. 5. Nitroglycerin 0.4 mg sublingually every 5 minutes p.r.n. for chest pain. 6. He takes Prilosec 40 mg p.o. daily. 7. Seroquel 100 mg p.o. q.h.s. 8. Crestor 40 mg daily. 9. Brilinta 90 mg p.o. b.i.d. 10. Amlodipine 2.5 mg p.o. daily. 11. BuSpar 15 mg p.o. t.i.d. as a p.r.n. for anxiety. B. Diet: Regular. C. Activities: As tolerated. The patient is strongly encouraged to abstain from tobacco products; however, he is declining the offer of continued nicotine replacement therapy indicating his continued preference to smoke on the outpatient basis. The patient has no studies pending at this time. D. Followup care: The patient will have a dental appointment at the [facility], which is scheduled for , 08/23/16. He also has an outpatient appointment for an intake at [facility] and that is established for 08/24/16. HOSPITAL COURSE: As follows: Part A: Reason for admission: The patient is a 40-year-old white male with a history of severe coronary artery disease as well as anxiety and depression who was transferred to the [facility] from the inpatient hospital unit following medical stabilization from an intentional overdose on a handful of Tylenol, amlodipine, and metoprolol tablets. The patient was extremely hostile and angry at the time of admission. He was loud, yelling at this observer and it is only with some care that his history was gathered. He states that he has been fighting with his of the last 8 years stating that on , he got into an altercation with the coworker at his job and promptly walked out. 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 He is very upset about this, indicating that he cannot live on the subsistence that social service technician provides him; for example, he states that although he has a car that is worth $9000 on the market, he owes over $11,000, meaning that this should not be counted as a material asset. Things came to a head apparently when he got into conflict with his spouse, whose name is Mar. It is known that she visit him on the unit yesterday and the 2 of them had a verbal altercation and she was escorted off the unit. At any rate, in terms of symptoms, he was endorsing extreme irritability, depressed mood, difficulty sleeping, poor appetite, limited concentration. When I asked if he would attempt again to end his life, he states "I am such a f--k-up, I cannot even get that right." He refuses to contract for safety at the time of admission. Part-B: Psychiatric treatment rendered: The patient was admitted to the adult behavioral health unit where he was placed on q.15-minute checks for his own safety. Initially, he was extremely irritable particularly stating that we had gotten his medications wrong and he refused to participate in group or milieu programming, preferred to lay in bed staring at his ceiling being upset and difficult to interact with. I was able to reconcile his medications from home and the only one that we could not provide him with was Crestor as we do not have this on formulary. Because he showed such concern about this medicine, I did speak with pharmacy to make it so that he could receive this on the inpatient service, so his Lipitor was changed back to the Crestor that he takes on an outpatient basis. One of his complaints was severe tooth pain. He states that several of his teeth have significant decay and require extraction, but that his dental providers would not do this because he is on 2-antiplatelet agents including Brilinta and aspirin. I was able to contact his outpatient date pitter, Dr. Dae Chatman, here at [facility], who did confirm that he cannot even temporarily go off his antiplatelet regimen, but Dr. Chatman indicated that there are several dentist in the area who are willing to do extractions if only one tooth at a time. For this reason, we set him up with a followup appointment with the [facility], and he will be seeing them shortly after discharge. An additional stressor was the lack of intimacy with his . He states that his ignores him and will not allow him to touch her, let alone have sex or be physically intimate. We had a family meeting that she attended and it came out that she would be happy to be intimate with him were it not for his extreme irritability. We did discover that he had a past diagnosis of bipolar disorder and he did seem to displace symptoms of both tiny and depression. For this reason, we changed his diagnosis to bipolar disorder with a mixed presentation and we discontinued his citalopram and Wellbutrin, which he had taken on an outpatient basis and these were replaced with a trial of Depakote 500 mg p.o. b.i.d. and Seroquel 50 mg nightly. After sometime, the Seroquel was increased to 100 mg nightly and he clearly started to improve. His valproic acid level was therapeutic at 65. He started attending groups and gained privileges to use the computer and go outside. He was able to contact his employer who welcomed him back to work and they assured him that even though he was losing his Medicaid, he would be able to get on an Employment Health and Dental Policy, which greatly relieved him. We placed him on a trial of amoxicillin 875 mg twice daily and treated his dental pain symptomatically with 50 to 100 mg of Ultram. At this point, he is set to get his teeth evaluated at [facility] on the following discharge. He has also been enrolled at [facility]. The patient is calm, cooperative, has experienced a marked reduction in agitated, depressed and manic symptoms. His Depakote level is therapeutic and we are discharging him to care in the community. He is steadfastly denying suicidal ideations at this time and has done so far several days. [id number]/[facility] #: [id number] HUNG
== END 2016-08-21 13:20 | disposition home or self-care (01) | DRG 753 ==
LOC: BSU 14:21
PROVIDERS: ADMIT Psychiatry & Neurology Psychiatry; ATTEND Psychiatry & Neurology Psychiatry
DX: F31.63 Bipolar disorder, current episode mixed, severe, without psychotic features (principal); N17.9 Acute kidney failure, unspecified; I11.9 Hypertensive heart disease without heart failure; F12.10 Cannabis abuse, uncomplicated; I25.10 Atherosclerotic heart disease of native coronary artery without angina pectoris; J44.9 Chronic obstructive pulmonary disease, unspecified; K21.9 Gastro-esophageal reflux disease without esophagitis; E78.5 Hyperlipidemia, unspecified; F17.210 Nicotine dependence, cigarettes, uncomplicated; I25.2 Old myocardial infarction; Z79.82 Long term (current) use of aspirin; Z79.899 Other long term (current) drug therapy; Z81.3 Family history of other psychoactive substance abuse and dependence
CPT/HCPCS: 36415; 80061; 80164; 83036; 90847; 99222; 99231; 99232; 99238; 99406; A9270-GY

== ENCOUNTER 2017-07-17 18:34 | Emergency (ER) | payer BC ==
[2017-07-17 18:46] VITALS: BP 145/72
[2017-07-17] MEDS ORDERED: HYDROcodone/ACETAMIN 5-325 MG* 1 TAB PO ONE (18:51)
--- NOTE | 2017-07-17 19:18 | RAD ---
Indication: Right rib injury. 3 views of the right ribs and dual energy PA view of the chest are are reviewed. There are fractures of the right 10th and ninth ribs and what appears to be 2 locations. No other fractures are identified. Dual-energy views of the chest demonstrates no pneumothorax. IMPRESSION: Fractures of the right ninth and 10th rib in 2 locations each. No pneumothorax is noted.
--- NOTE | 2017-07-17 20:22 | UC ---
Feng Villarreal Natalie, scribed for Kevin Moore MD on 07/17/17 at 1906 . Back Pain HPI - HPI Summary HPI Summary: The pt is a 41 y/o M presenting to [facility] c/o right low back and lateral rib pain starting this afternoon s/p falling onto the top of a metal dumpster from standing position. He states that the pain is the worst pain hes ever felt rated 10/10. The pain is aggravated by movement. He's has taken Acetaminophen [employer]. Pt additionally c/o abrasion on right lateral ribs. Pt denies abd pain and hematuria. He has hx of three MIs. - History of Current Complaint Chief Complaint: UCBackPain Stated Complaint: RIB INJURY Time Seen by Provider: 07/17/17 18:46 Hx Obtained From: Patient Onset/Duration: Sudden Onset, Lasting Hours, Still Present Timing: Constant Severity Initially: Severe Severity Currently: Severe Pain Intensity: 10 Pain Scale Used: 0-10 Numeric Back Pain: Is Discrete @ - low right back Aggravating Factor(s): Movement Alleviating Factor(s): Nothing Associated Signs And Symptoms: Positive: Other - POSITIVE: pain and abrasion on right lateral ribs; NEGATIVE: hematuria. Negative: Abdominal Pain - Allergies/Home Medications Allergies/Adverse Reactions: Allergies Allergy/AdvReac Type Severity Reaction Status Date / Time No Known Allergies Allergy Verified 08/12/16 19:30 PMH/Surg Hx/FS Hx/Imm Hx Previously Healthy: No Respiratory History: COPD - Surgical History Surgical History: Yes Surgery Procedure, Year, and Place: tonsillectomy 1987 - Family History Known Family History: Positive: Cardiac Disease - CAD - Social History Alcohol Use: Occasionally Substance Use Type: None, Marijuana Smoking Status (MU): Heavy Every Day Tobacco Smoker Type: Cigarettes Amount Used/How Often: 2 1/2 to 3 pack per day Length of Time of Smoking/Using Tobacco: 28 YEARS Have You Smoked in the Last Year: Yes Household Exposure Type: Cigarettes - Immunization History Most Recent Influenza Vaccination: fall 2015 Most Recent Tetanus Shot: unknown Most Recent Pneumonia Vaccination: 2013 Review of Systems Gastrointestinal: Other - NEGATIVE: abd pain Genitourinary: Other - NEGATIVE: hematuria Musculoskeletal: Other: - right low back pain, right lateral rib pain with abrasion All Other Systems Reviewed And Are Negative: Yes Physical Exam - Summary Physical Exam Summary: General: mildly ill-appearing, severe pain distress Skin: warm, color reflects adequate perfusion, dry Head: normal Eyes: EOMI, ROBIN ENT: normal Neck: supple, nontender Respiratory: CTA, breath sounds present Cardiovascular: RRR Abdomen: soft, nontender Bowel: present Musculoskeletal: abrasion on right lateral lower ribs, tender Neurological: normal, sensory/motor intact, A&O x3 Psychological: affect/mood appropriate Triage Information Reviewed: Yes Vital Signs: Initial Vital Signs Temp 97.9 F 07/17/17 18:40 Pulse 67 07/17/17 18:40 Resp 18 07/17/17 18:40 BP 145/72 07/17/17 18:40 Pulse Ox 99 07/17/17 18:40 Vital Signs Reviewed: Yes Diagnostics - Radiology Right Ribs and CXR Xray Interpretation: Positive (See Comments) - Fractures of the right ninth and 10th rib in 2 locations each. No pneumothorax is noted. [facility] physician has reviewed this report. Radiology Interpretation Completed By: Radiologist Back Pain Course/Dx - Course Course Of Treatment: BP noted and advised to follow up with PCP. Medications reviewed. NO PNEUMO OR PLEURAL EFFUSION ON X-RAY. RX NORCO, HOME WITH INCENTIVE SPIROMETER, F/U PMD, GET RECHECKED IF WORSE. - Differential Dx/Diagnosis Provider Diagnoses: RT 9TH AND 10TH RIB FRACTURES Discharge - Discharge Plan Condition: Stable Disposition: HOME Prescriptions: HYDROcodone/ACETAMIN 5-325 MG* [Troy 5-325 TAB*] 1 tab PO Q4H PRN #30 tab MDD 6 PRN Reason: Pain Patient Education Materials: Rib Fracture (ED) Forms: *Work Release Referrals: Nori Velazco MD [Primary Care Provider] - Additional Instructions: FOLLOW UP WITH YOUR DOCTOR. GO TO THE EMERGENCY DEPARTMENT FOR ANY WORSENING OF YOUR CONDITION OR QUESTIONS OR CONCERNS. YOUR BLOOD PRESSURE WAS ELEVATED TODAY; FOLLOW UP WITH YOUR PRIMARY CARE DOCTOR WITHIN ONE WEEK. The documentation as recorded by the Feng barron Natalie accurately reflects the service I personally performed and the decisions made by me, Kevin Moore MD.
== END 2017-07-17 19:54 | disposition home or self-care (01) ==
LOC: UCEAST 18:34
DX: S22.41XA Multiple fractures of ribs, right side, initial encounter for closed fracture (principal); S20.91XA Abrasion of unspecified parts of thorax, initial encounter; W18.09XA Striking against other object with subsequent fall, initial encounter; Y93.89 Activity, other specified; Y92.9 Unspecified place or not applicable; J44.9 Chronic obstructive pulmonary disease, unspecified; F17.210 Nicotine dependence, cigarettes, uncomplicated
CPT/HCPCS: 99212; G0463

== ENCOUNTER 2017-07-23 15:26 | Emergency (ER) | payer SELFPAY ==
--- NOTE | 2017-07-23 15:47 | UC ---
General HPI - HPI Summary HPI Summary: 41 yo gentleman presents for reevaluation R rib fx, sustained at work 07/17/17. Seen here in [facility] at the time, details in original report. Fell onto the edge of a dumpster, approx 4 feet. Hurts to take a deep breath, unable to cough d/t pain. No sob perse. Pain 3/10 at rest, much higher rating when active, including walking. Unable to lie down on a bed, sleeping at a relative's house in recliner. No abd pain. Appetite ok. No other pain / injury. + abrasion R lat chest wall, denies new issues with this. + tobacco, but decreased. Has been trying to take periodic deep breaths but hurts. No fever / chills. Concerned b/c work note expressed return to work on (today is ) but he is very active, lots of heavy lifting and maneuvering. Was advised at work to be rechecked. PCP does not take Workmens Comp, so he presents here. - History of Current Complaint Chief Complaint: UCBackPain Stated Complaint: RIB INJURIES RECHECK WC Time Seen by Provider: 07/23/17 15:43 Hx Obtained From: Patient Pain Intensity: 8 - Allergy/Home Medications Allergies/Adverse Reactions: Allergies Allergy/AdvReac Type Severity Reaction Status Date / Time No Known Allergies Allergy Verified 07/23/17 15:42 Home Medications: Home Medications BuPROPion XL* [Bupropion XL*] 300 mg PO DAILY 07/23/17 [History Confirmed ] Docusate CAP* [Colace Cap*] 100 mg PO DAILY 07/23/17 [History Confirmed 07/23/17 ] Gabapentin CAP(*) [Neurontin 300 CAP(*)] 300 mg PO TID 07/23/17 [History Confirmed 07/23/17] Rosuvastatin Calcium 40 mg PO 07/23/17 [History] PMH/Surg Hx/FS Hx/Imm Hx Previously Healthy: No Respiratory History: Other - AL, CAD Other Respiratory History: AL, CAD - Surgical History Surgical History: Yes Surgery Procedure, Year, and Place: tonsillectomy 1987 - Family History Known Family History: Positive: Cardiac Disease - CAD - Social History Alcohol Use: Occasionally Substance Use Type: Marijuana Smoking Status (MU): Light Every Day Tobacco Smoker Type: Cigarettes Amount Used/How Often: 2 1/2 to 3 pack per day Length of Time of Smoking/Using Tobacco: 28 YEARS Have You Smoked in the Last Year: Yes Household Exposure Type: Cigarettes - Immunization History Most Recent Influenza Vaccination: fall 2015 Most Recent Tetanus Shot: unknown Most Recent Pneumonia Vaccination: 2013 Review of Systems Constitutional: Negative Skin: Other - abrasion R ant chest wall, irregular shaped. Without redness, overlying eschar, nonfluctuant. Eyes: Negative ENT: Negative Respiratory: Other - see hpi Cardiovascular: Other - see hpi Gastrointestinal: Negative Genitourinary: Negative Motor: Other - see hpi Neurovascular: Negative Musculoskeletal: Arthralgia Neurological: Negative Psychological: Negative Is Patient Immunocompromised?: No All Other Systems Reviewed And Are Negative: Yes Physical Exam Triage Information Reviewed: Yes Appearance: Thin, Other: - without acute distress, but uncomfortable with movement / deep breath. Vital Signs: Initial Vital Signs Temp 98.7 F 07/23/17 15:35 Pulse 60 07/23/17 15:35 Resp 18 07/23/17 15:35 BP 125/79 07/23/17 15:35 Pulse Ox 98 07/23/17 15:35 Vital Signs Reviewed: Yes Eye Exam: Normal ENT Exam: Normal Neck exam: Normal Neck: Positive: Supple, Nontender Respiratory Exam: Other - BS clear and equal. However, poor full insp effort Bibasilar. No outright adventitious sounds. No crackles. No crepitus. There is point tenderness R post lat chest wall approx ribs 8-10. Cardiovascular: Positive: RRR, No Murmur, Pulses Normal, Brisk Capillary Refill Abdominal Exam: Normal Abdomen Description: Positive: Nontender - no abd tenderness. + bs. Soft. ND. Musculoskeletal Exam: Other - grossly normal except chest wall exam as above Neurological Exam: Normal - grossly nonfocal. No c/o p/d. Psychological Exam: Normal - conversing easily and appropriately. Skin Exam: Normal - no rash (except abrasion as above) visible or reported. Nondiaphoretic. Course/Dx - Course Course Of Treatment: Reviewed [facility] notes from 07/17/17, and ancillary results. CXR 07/17/17 ([employer]) - Fx of the 9th and 10th ribs in two locations. No ptx. Physician referral info (Kimberley Hamilton) given to pt by RN. 16:30 s/o Dr. Otto. Pt in Xray at this time. - Differential Dx - Multi-Symptom Provider Diagnoses: R rib fx recheck. S/o Dr. Otto 16:30 Discharge - Discharge Plan Condition: Stable Disposition: OTHER Discharge Disposition Comment: s/o Dr. Otto 16:30. See Dr. Otto d/c instructions. Referrals: Nori Velazco MD [Primary Care Provider] -
--- NOTE | 2017-07-23 16:46 | RAD ---
INDICATION: Chronic fracture of the right ribs. COMPARISON: Comparison is made with a prior study from July 17, 2017. TECHNIQUE: 4 views of the right ribs were obtained. FINDINGS: There are slightly displaced fractures of the right posterior lateral eighth ninth and 10th ribs. The ninth and 10th ribs are fractured in 2 locations in each. No bony callus is seen. There is no significant change from the prior study. IMPRESSION: SLIGHTLY DISPLACED FRACTURES OF THE 8TH THROUGH 10TH RIBS, UNCHANGED.
--- NOTE | 2017-07-23 16:48 | RAD ---
INDICATION: Traumatic fractures of right lower ribs. COMPARISON: Comparison is made with a prior chest x-ray study from July 17, 2017. TECHNIQUE: Dual-energy PA and lateral views of the chest were obtained. FINDINGS: The heart is within normal limits in size. Mediastinal and hilar contours appear within normal limits. The lungs are clear. There is a small right pleural effusion which is unchanged. No pneumothorax is seen. There are slightly displaced fractures of the right eighth through 10th ribs. IMPRESSION: 1. SMALL RIGHT PLEURAL EFFUSION, UNCHANGED. 2. FRACTURES OF THE RIGHT EIGHTH THROUGH 10TH RIBS, UNCHANGED.
[2017-07-23] MEDS ORDERED: Tetan/Diph/Pertus SYR(Tdap)* 0.5 ML SYR(BOOSTRIX) use SYR IM ONE (17:15)
[2017-07-23 17:43] VITALS: BP 0/0
== END 2017-07-23 17:41 | disposition home or self-care (01) ==
LOC: UCEAST 15:26
DX: S22.41XD Multiple fractures of ribs, right side, subsequent encounter for fracture with routine healing (principal); S27.9XXD Injury of unspecified intrathoracic organ, subsequent encounter; W18.00XD Striking against unspecified object with subsequent fall, subsequent encounter; J90 Pleural effusion, not elsewhere classified; I25.10 Atherosclerotic heart disease of native coronary artery without angina pectoris; I25.2 Old myocardial infarction; F17.210 Nicotine dependence, cigarettes, uncomplicated
CPT/HCPCS: 71046; 90471; 90715; 99212; G0463

== ENCOUNTER 2017-08-07 10:37 | Emergency (ER) | payer OTHER ==
--- NOTE | 2017-08-07 12:58 | UC ---
Minor Trauma HPI - HPI Summary HPI Summary: Patient to urgent care today for reevaluation recent diagnosis (July 13) with slightly displaced right 89 and 10th rib fractures. Patient was released by primary care doctor should return to light duty work no more lifting than 10 pounds. Patient went to work yesterday and was unable to complete light duty tasks. Patient called his primary care doctor who saw that the office until next week he has a follow-up appointment with her on August 15. Patient is here seeking an out of work note until reevaluation on August 15. Patient is using Tylenol ice and lidocaine patch for pain relief - History of Current Complaint Chief Complaint: UCTrauma Stated Complaint: RECHECK RIB INJURY Time Seen by Provider: 08/07/17 12:46 Hx Obtained From: Patient Onset/Duration: Sudden Onset, Lasting Weeks - 3, Still Present Onset Of Pain: Immediate Severity Initially: Moderate Severity Currently: Moderate Pain Intensity: 3 Pain Scale Used: 0-10 Numeric Mechanism Of Injury: Blunt Trauma Aggravating Factor(s): Ambulation, Coughing, Deep Breaths, Movement Alleviating Factor(s): Ice, OTC Meds, Rest - Allergies/Home Medications Allergies/Adverse Reactions: Allergies Allergy/AdvReac Type Severity Reaction Status Date / Time No Known Allergies Allergy Verified 08/07/17 11:20 Home Medications: Home Medications Ticagrelor* [Brilinta 90 MG*] 60 mg PO BID 08/07/17 [History Confirmed 08/07/17] PMH/Surg Hx/FS Hx/Imm Hx Previously Healthy: No Endocrine History: Dyslipidemia Cardiovascular History: Cardiac Disease, Hypertension GI/ History: Gastroesophageal Reflux Psychological History: Anxiety, Depression - Surgical History Surgical History: Yes Surgery Procedure, Year, and Place: tonsillectomy 1987 - Family History Known Family History: Positive: Cardiac Disease - CAD - Social History Occupation: Employed Full-time Lives: With Family Alcohol Use: Occasionally Substance Use Type: Marijuana Smoking Status (MU): Light Every Day Tobacco Smoker Type: Cigarettes Amount Used/How Often: 2 1/2 to 3 pack per day Length of Time of Smoking/Using Tobacco: 28 YEARS Have You Smoked in the Last Year: Yes Household Exposure Type: Cigarettes - Immunization History Most Recent Influenza Vaccination: fall 2015 Most Recent Tetanus Shot: unknown Most Recent Pneumonia Vaccination: 2013 Review of Systems Constitutional: Negative Skin: Negative Eyes: Negative ENT: Negative Respiratory: Negative Cardiovascular: Negative Gastrointestinal: Negative Genitourinary: Negative Motor: Negative Neurovascular: Negative Musculoskeletal: Arthralgia - Right ninth and 10th rib pain Neurological: Negative Psychological: Negative Is Patient Immunocompromised?: No All Other Systems Reviewed And Are Negative: Yes Physical Exam Triage Information Reviewed: Yes Appearance: Well-Appearing, No Pain Distress, Well-Nourished Vital Signs: Initial Vital Signs Temp 98.9 F 08/07/17 11:08 Pulse 63 08/07/17 11:08 Resp 16 08/07/17 11:08 BP 130/76 08/07/17 11:08 Pulse Ox 100 08/07/17 11:08 Vital Signs Reviewed: Yes Eye Exam: Normal Eyes: Positive: Conjunctiva Clear ENT Exam: Normal ENT: Positive: Normal ENT inspection, Hearing grossly normal. Negative: Pharynx normal, Nasal congestion, Nasal drainage, TMs normal, Tonsillar swelling , Tonsillar exudate, Trismus, Muffled voice, Hoarse voice, Dental tenderness, Sinus tenderness Dental Exam: Normal Neck exam: Normal Neck: Positive: Supple, Nontender Respiratory Exam: Normal Respiratory: Positive: Lungs clear, Normal breath sounds, No respiratory distress, No accessory muscle use, Other: - Chest wall tender in area of fractured ribs. Negative: Chest non-tender Cardiovascular Exam: Normal Cardiovascular: Positive: RRR, No Murmur, Pulses Normal, Brisk Capillary Refill Musculoskeletal Exam: Normal Musculoskeletal: Positive: Strength Intact, ROM Intact, No Edema Neurological Exam: Normal Neurological: Positive: Alert, Muscle Tone Normal, Fatigued Psychological Exam: Normal Skin Exam: Normal Minor Trauma Course/Dx - Course Course Of Treatment: Continue pain management as ordered by primary care. We will extend out of work until primary care doctor can reevaluate on August 15 - Differential Dx/Diagnosis Provider Diagnoses: Continued right rib pain status post slightly displaced right #8,9 and 10 fractured ribs Discharge - Sign-Out/Discharge Documenting (check all that apply): Discharge - Discharge Plan Condition: Stable Disposition: HOME Patient Education Materials: Acetaminophen (By mouth), Lidocaine Patch (On the skin), How to Stop Smoking (ED), Rib Fracture (ED) Forms: *Work Release Referrals: Audrey Ramesh MD [Primary Care Provider] - 08/15/17 - Billing Disposition and Condition Condition: STABLE Disposition: HOME
[2017-08-07 13:10] VITALS: BP 116/70
== END 2017-08-07 13:10 | disposition home or self-care (01) ==
LOC: UCEAST 10:37
DX: R07.81 Pleurodynia (principal); S22.41XD Multiple fractures of ribs, right side, subsequent encounter for fracture with routine healing; X58.XXXD Exposure to other specified factors, subsequent encounter; E78.5 Hyperlipidemia, unspecified; I25.10 Atherosclerotic heart disease of native coronary artery without angina pectoris; I10 Essential (primary) hypertension; K21.9 Gastro-esophageal reflux disease without esophagitis; F41.9 Anxiety disorder, unspecified; F32.9 Major depressive disorder, single episode, unspecified; F17.210 Nicotine dependence, cigarettes, uncomplicated
CPT/HCPCS: 99212; G0463

== ENCOUNTER 2017-12-23 07:44 | Observation (INO) | payer MEDICAID, OTHER ==
--- NOTE | 2017-12-23 08:09 | ED ---
Complex/Multi-Sys Presentation - HPI Summary HPI Summary: Patient is a 42-year-old male who presents emergency Department with vague complaints of upper abdominal pain, chest pain, nausea and left arm pain. Symptoms have been ongoing over the last several days. Patient states he has a history of multiple MIs and states his symptoms today feel the same as his prior heart attacks. Patient states he has not had a family doctor over the last several months and saw his new family doctor last week. He has been out of all of his medications except Brilinta and baby aspirin which he has been taking daily. Symptoms are moderate in severity. Patient currently denies chest pain. - History Of Current Complaint Chief Complaint: EDAbdPain Time Seen by Provider: 12/23/17 07:57 Hx Obtained From: Patient - Allergies/Home Medications Allergies/Adverse Reactions: Allergies Allergy/AdvReac Type Severity Reaction Status Date / Time No Known Allergies Allergy Verified 12/23/17 08:09 PMH/Surg Hx/FS Hx/Imm Hx Previously Healthy: Yes Endocrine/Hematology History: Denies: Hx Diabetes, Hx Anemia Cardiovascular History: Reports: Hx Angina, Hx Angioplasty, Hx Cardiac Arrest, Hx Coronary Artery Disease - STENT RCA,SEE CATH REPORT, Hx Hypercholesterolemia , Hx Hypertension, Hx Myocardial Infarction - X2 Denies: Hx Aneurysm, Hx Auto Implanted Cardiovert Defib, Hx Cardiomegaly, Hx Congenital Heart Disease, Hx Congestive Heart Failure, Hx Deep Vein Thrombosis, Hx Embolism, Hx Hypotension, Hx Pacemaker/ICD Respiratory History: Reports: Hx Asthma - inhalers, Hx Chronic Obstructive Pulmonary Disease (COPD), Other Respiratory Problems/Disorders - states he wheezes GI History: Reports: Hx Gastroesophageal Reflux Disease, Hx Ulcer - acid Musculoskeletal History: Reports: Hx Back Problems - freq low back ache Sensory History: Reports: Hx Contacts or Glasses Denies: Hx Cataracts, Hx Hearing Aid Opthamlomology History: Reports: Hx Contacts or Glasses Denies: Hx Cataracts - Surgical History Surgery Procedure, Year, and Place: tonsillectomy 1987 Hx Anesthesia Reactions: No Infectious Disease History: No Infectious Disease History: Denies: Traveled Outside the [place] in Last 30 Days - Family History Known Family History: Positive: Cardiac Disease - CAD - Social History Occupation: Employed Full-time Lives: With Family Alcohol Use: Rare Hx Substance Use: No Substance Use Type: Reports: Marijuana Substance Use Comment - Amount & Last Used: daily Hx Tobacco Use: Yes Smoking Status (MU): Heavy Every Day Tobacco Smoker Type: Cigarettes Amount Used/How Often: 2 1/2 to 3 pack per day Length of Time of Smoking/Using Tobacco: 28 YEARS Have You Smoked in the Last Year: Yes Review of Systems Constitutional: Negative Negative: Fever, Chills Eyes: Negative ENT: Negative Positive: Chest Pain Negative: Shortness Of Breath, Cough Positive: Abdominal Pain, Nausea Genitourinary: Negative Positive: Other - Left arm pain Neurological: Negative All Other Systems Reviewed And Are Negative: Yes Physical Exam Triage Information Reviewed: Yes Vital Signs On Initial Exam: Initial Vitals Temp Pulse Resp BP Pulse Ox 98.1 F 57 18 149/72 98 12/23/17 07:46 12/23/17 07:46 12/23/17 07:46 12/23/17 07:46 12/23/17 07:46 Vital Signs Reviewed: Yes Appearance: Positive: Well-Appearing - Pt. sitting up in bed in NAD. Family member present. Skin: Positive: Warm, Dry Head/Face: Positive: Normal Head/Face Inspection Eyes: Positive: Normal Neck: Positive: Supple Respiratory/Lung Sounds: Positive: Clear to Auscultation, Breath Sounds Present Cardiovascular: Positive: Normal, RRR Abdomen Description: Positive: Nontender, Soft. Negative: Guarding Neurological: Positive: Normal, CN Intact II-III Psychiatric: Positive: Affect/Mood Appropriate Diagnostics - Vital Signs Vital Signs Temp Pulse Resp BP Pulse Ox 12/23/17 07:46 98.1 F 57 18 149/72 98 - Laboratory Result Diagrams: 12/23/17 08:17 12/23/17 08:17 Lab Statement: Any lab studies that have been ordered have been reviewed, and results considered in the medical decision making process. Complex Multi-Symp Course/Dx Course Of Treatment: Pt. presenting to the ER with the above complaints. VS are stable. Currently CP free. Cardiac workup ordered. ECG done at 08 shows a sinus bradycardia of 48 bpm, left axis deviation, no ST elevation or depression , similar to prior tracing. Labs are unremarkable other than mild leukocytosis. Chest xray is negative for acute findings, reading per radiology. Pt. is stating that his symptoms today feel exactly like his previous symptoms with his prior MIs. Given pt.'s history of CAD and multiple stents, hospitalist was contacted for CP r/o admission. I spoke with Dr. Antony who has accepted pt. for observation for further evaluation. - Diagnoses Differential Diagnoses/HQI/PQRI: Other - MT, cholecystitis, GERD, gastritis Provider Diagnoses: Chest pain Discharge - Sign-Out/Discharge Documenting (check all that apply): Patient Departure - Discharge Plan Condition: Stable Disposition: ADMITTED TO [facility] - Billing Disposition and Condition Condition: STABLE Disposition: Admitted to [facility]
[2017-12-23 08:28] LABS: ABS Basophils 0.1 10^3/ul (0-0.2); ABS Eosinophils 0.1 10^3/ul (0-0.6); ABS Lymphocytes 1.7 10^3/ul (1.0-4.8); ABS Monocytes 0.4 10^3/ul (0-0.8); ABS Neutrophils 10.6 10^3/ul (1.5-7.7); ABS Nucleated RBC 0 10^3/ul; Eosinophil % 0.8 % (0-6); Hematocrit 43 % (42-52); Hemoglobin 14.5 g/dl (14.0-18.0); Lymphocyte % 13.4 % (25-47); Mean Corpuscular HGB Conc 34 g/dl (31-36); Mean Corpuscular Hemoglobin 32 pg (27-31); Mean Corpuscular Volume 93 fL (80-94); Mean Platelet Volume 6.6 um3 (7.4-10.4); Nucleated Red Blood Cells % 0; Platelet Count 326 10^3/ul (150-450); Red Blood Count 4.61 10^6/ul (4.00-5.40); Red Cell Distribution Width 13 % (10.5-15); White Blood Count 12.9 10^3/ul (3.5-10.8)
[2017-12-23 08:55] LABS: EGFR Non-African American 88.3 (>60)
--- NOTE | 2017-12-23 09:37 | RAD ---
INDICATION: Chest pain. COMPARISON: Comparison is made with a prior chest x-ray study from July 23, 2017. TECHNIQUE: A portable view of the chest was obtained. FINDINGS: Cardiac and mediastinal contours appear to be within normal limits. The lungs are underinflated. There is mild prominence of the interstitial markings. No significant infiltrate or pleural effusion is seen. There are chronic fractures of the eighth through 10th right posterior ribs. The eighth and ninth ribs are likely ununited. IMPRESSION: NO EVIDENCE FOR ACUTE FINDING.
[2017-12-23] MEDS ORDERED: Albuterol HFA INHALER* 8 gm MDI INH PRN (09:55)
[2017-12-23] MEDS ORDERED: Acetaminophen TAB* 325 MG PO PRN (09:56)
[2017-12-23] MEDS: Heparin VIAL(*) 5000 UNITS/ML VIAL (FIVE THOUSAND) SUBCUT SCH ×2 (13:49→21:41)
--- NOTE | 2017-12-23 16:47 | RAD ---
INDICATION: Upper abdominal pain. Epigastric pain. COMPARISON: None TECHNIQUE: Longitudinal and transverse scans of the right upper quadrant were obtained. Doppler interrogation of the hepatic and portal venous system was performed. FINDINGS: Liver: The liver is normal in size and echogenicity. There are are several subcentimeter hepatic cysts in the right hepatic lobe one measuring 0.7 cm and other 0.9 cm. The liver measures 14.8 cm in cephalocaudal dimension. Vessels: There is normal hepatic and portal venous flow. Bile ducts: There is no evidence of intrahepatic or extrahepatic ductal dilatation. The common duct measures 0.4 cm. Gallbladder: The sonographic appearance of the gallbladder is normal. There is no evidence of cholelithiasis, thickening of the gallbladder wall, or pericholecystic fluid. Pancreas: The visualized pancreas appears normal Right kidney: The right kidney is normal in size and echogenicity. There are no masses or calculi. There is no evidence of hydronephrosis. The right kidney measures 11.3 x 4.8 x 6.1 cm. IVC and aorta: The aorta and superior vena cava appear normal. Fluid: There is no ascites. Other: None. IMPRESSION: NORMAL GALLBLADDER. INCIDENTAL SUBCENTIMETER HEPATIC CYSTS
--- NOTE | 2017-12-23 19:06 | HP ---
CC: [facility] MEDICINE HISTORY AND PHYSICAL: DATE OF ADMISSION: 12/23/17 PRIMARY CARE PROVIDER: [facility] ATTENDING PHYSICIAN: Dr. Keerthi Robertson* (dictation provided by Fatimah Youssef NP) . CHIEF COMPLAINT: Elbow pain and left upper quadrant pain. HISTORY OF PRESENT ILLNESS: Mr. 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 Mr. Berger states that he last saw Dr. Chatman in October 2017 for medical clearance to start a new job. At that time, the patient had no complaints. The patient states in the past 6 weeks he has developed recurrent, intermittent left elbow pain. He states that in the past this elbow pain was related to his symptoms of KS. He has various other complaints, including heartburn that is often associated with left upper quadrant pain. This heartburn sometimes runs into his neck and cause a burning sensation on either the left or right side. At that time, he will get pain in his left elbow as well. There were also times when he has heartburn that are not associated with the symptoms of neck or elbow pain. He notes no rhyme or reason to the onset of these symptoms. They are not associated with activity nor with eating. However, the patient states that he has had difficult eating recently with early satiety. He has a history of severe erosive esophagitis via upper endoscopy a few years ago. He had been recommended to take pantoprazole, but had not been able to afford it recently. In terms of his KS risks, he has continued to take aspirin and Brilinta, but has not been able to afford any other medications. He has also continued to smoke almost pack a day. In addition to these symptoms, the patient states he has been off of his antidepressant and anxiety medications. Per his recollection, his last medications were Depakote, bupropion XL and gabapentin as prescribed through [facility]. He has been unable to afford those medications. He states that he has had some depression and anxiety, but notes that it is not severe. He denies any suicidal ideation to me today. In the emergency room, Mr. Berger had labs, which showed troponin 0.00 and an EKG which showed no evidence of ischemia. His vital signs are stable. The rest of his labs are unremarkable except for white blood cell count of 12.9. PAST MEDICAL HISTORY: 1. 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 2. Hyperlipidemia. 3. Hypertension. 4. GERD with severe erosive esophagitis. 5. COPD. 6. Anxiety. 7. Depression. 8. Bipolar disorder. MEDICATIONS: 1. Aspirin 81 mg daily p.o. daily. 2. Brilinta 60 mg p.o. b.i.d. FAMILY HISTORY: No report of early heart disease in the immediate family. SOCIAL HISTORY: The patient is a continued smoker, three-quarter pack a day. He reports that he rarely drinks alcohol and he does smoke marijuana. His healthcare proxy would be his mom or his , Mar. REVIEW OF SYSTEMS: A 14-point review of systems was completed with Mr. Berger and all those not mentioned above were negative. PHYSICAL EXAMINATION GENERAL: Mr. Berger is sitting up on the bed. He is in no acute distress. His mom is at the bedside. VITAL SIGNS: Temperature 97.9, pulse rate 50, respiratory rate 18, O2 saturation 100% on room air, blood pressure 124/70. LUNGS: Clear to auscultation bilaterally with no accessory muscle use and good aeration. HEART: S1 and S2. No murmur, rub, or gallop and regular. ABDOMEN: Soft and nontender with bowel sounds positive x4. EXTREMITIES: No cyanosis or edema. NEUROLOGIC: He is alert. He is oriented x3. He moves all extremities equally. There is no facial asymmetry or focal weakness. Extraocular movements are intact. SKIN: Intact. DIAGNOSTIC STUDIES/LAB DATA: WBC 12.9, hemoglobin 14.5, hematocrit 43, platelet count 326. APTT 29.3. Sodium 138, potassium 4.4, chloride 110, serum bicarbonate 22, BUN 11, creatinine 0.93, glucose 112. Troponin 0.00 followed by repeat check in 4 hours, which is also 0.00. Chest x-ray shows no acute process. EKG shows sinus bradycardia with no evidence of ischemia. ASSESSMENT AND PLAN: Mr. Berger is a 42-year-old male with past medical history of myocardial infarction x3 with 2 episodes being related to in-stent restenosis secondary to noncompliance with medication due to poor insurance coverage. He presents to the hospital today with symptoms of left elbow pain, which he states are very similar to his past myocardial infarction experiences. Our plans are for observation in the hospital for the followin. Left elbow pain associated with heartburn and burning in the neck. The patient's symptoms are atypical, but per his report are similar to previous episodes of myocardial infarction. These symptoms are not related to exercise or exertion. However, given his extensive history and continued risk factors, he is at high risk for coronary artery disease and acute coronary syndrome. His first troponins are negative as well as his EKG. Plan for a repeat troponin in 4 hours and then he will have an exercise nuclear medicine stress test tomorrow. His symptoms certainly could also be related to heartburn and history of severe erosive esophagitis. I do not have that report in the electronic medical record, but the patient has verbally reported history of these findings. He had been recommended to be on pantoprazole, but could not afford it. I will start that now. He does complain of upper quadrant pain and some early associated satiety. He may warrant outpatient endoscopy. For now I am checking a gallbladder ultrasound given the complexity and variety of his symptoms to rule out gallbladder disease. 2. Hypertension. The patient's blood pressure is well-controlled. He is not currently on any home agents. 3. Hyperlipidemia. The patient is not able to afford medications per his report, but this should be resumed when he afford it. 4. DVT prophylaxis with heparin subcu. 5. Code status is full code. 6. Disposition to telemetry floor. The patient states in terms of disposition home, medication is going forward, the patient states that he did just recently signed up and become approved for Medicaid, so hopefully he will be better able to afford medications as needed. TIME SPENT: Approximately 60 minutes was spent on the admission of this patient , more than half time spent with the patient at the bedside reviewing the events leading up to this hospitalization, performing the physical examination, and reviewing my plan of care. FATIMAH YOUSSEF, HAYDE [id number]/[facility] #: [id number] [facility]
[2017-12-23] MEDS ORDERED: TICAGRELOR 60 MG PO SCH (21:00)
[2017-12-23] MEDS: Omeprazole CAP* 20 MG PO SCH (21:41)
[2017-12-23] MEDS: Ticagrelor* 90 MG TAB PO SCH (21:42)
[2017-12-24] MEDS: Heparin VIAL(*) 5000 UNITS/ML VIAL (FIVE THOUSAND) SUBCUT SCH ×2 (05:54→15:16)
[2017-12-24] MEDS: Omeprazole CAP* 20 MG PO SCH (08:19)
[2017-12-24] MEDS: Ticagrelor* 90 MG TAB PO SCH (08:19)
[2017-12-24] MEDS ORDERED: Aspirin EC TAB* 81 MG TAB.EC PO SCH (09:00)
[2017-12-24] MEDS ORDERED: Regadenoson* 0.4 MG/5 ML SYRINGE ONE (12:19)
[2017-12-24] MEDS ORDERED: Aminophylline IV* 25 MG/ML 10 ML VIAL ONE (12:20)
--- NOTE | 2017-12-24 15:01 | RAD ---
INDICATION: Chest pain COMPARISON: June 14, 2015 TECHNIQUE: A single day SPECT protocol was utilized. Rest images were acquired following the intravenous injection of 10.9 millicuries of technetium 99m tetrofosmin. Pharmacologic stress images were acquired following the intravenous administration of 25.6 millicuries of technetium 99m tetrofosmin. FINDINGS: There is diaphragmatic attenuation. However, the corrected images suggest a small focus of apical ischemia. There are no additional apparent defects or stress-induced or fixed nature The cardiac chamber size is normal. There are no wall motion abnormalities. The ejection fraction is calculated at 56 percent during stress. IMPRESSION: FINDINGS SUSPICIOUS FOR SMALL STRESS-INDUCED APICAL DEFECT. ASSESSMENT: LOW-RISK Based on imaging criteria from ACC/AHA 2002 Guideline Update for the Management of Patients With Chronic Stable Angina Table 23. Noninvasive Risk Stratification.
[2017-12-24] MEDS ORDERED: Nicotine GUM* 2 MG PO PRN (15:11)
[2017-12-24] MEDS ORDERED: Mouth Piece, Nicotine* 1 EACH CARTRIDGE INH PRN (15:11)
[2017-12-24] MEDS ORDERED: Nicotine Inhaler* 10 MG AMP INH PRN (15:11)
[2017-12-24 15:51] VITALS: BP 130/81
[2017-12-24] MEDS ORDERED: TICAGRELOR 60 MG PO SCH (21:00)
--- NOTE | 2017-12-25 01:52 | DS ---
CC: Kianna Alfaro, nurse practitioner at [facility]; Dr. Chatman. DISCHARGE SUMMARY: DATE OF ADMISSION: 12/23/17 DATE OF DISCHARGE: 12/24/17 PRIMARY CARE PROVIDER: Kianna Alfaro, nurse practitioner at [facility] DOG DAY CARE ATTENDANT: Dr. Chatman MEDICATION LISTS: 1. Albuterol HFA 1 to 2 puffs inhaled for shortness of breath. 2. Aspirin 81 mg p.o. daily. 3. Metoprolol succinate 25 mg p.o. daily. 4. Nicotine gum 2 mg q.2 hours for any cravings. 5. Pantoprazole 20 mg p.o. daily. 6. Rosuvastatin 40 mg p.o. daily. 7. Brilinta 60 mg p.o. b.i.d. As per the patient those were the medications he was taking before when he had insurance coverage. HISTORY OF PRESENT ILLNESS/HOSPITAL COURSE: Mr. Berger is a 42-year-old male with a past medical his tory of coronary artery disease status post [place] x3 with episodes of in-stent restenosis last one in 16, hyperlipidemia, hypertension, GERD with severe erosive esophagitis, COPD, anxiety, depression, bi polar disorder, who presented to the emergency room with complaints of left upper quadrant pain, burn ing sensation on his neck radiating to his elbow. The patient states that when he had his MIs in the past, he usually would have symptoms on his elbow, the reason why he came to the emergency room for further evaluation. Of note, is the fact that the patient has not been compliant with his medication s due to lack of insurance. He just received insurance coverage again and he has been taking only as pirin and Brilinta. For more details about his presentation, I refer you to his history and physical. The patient was monitored on telemetry where he had no significant arrhythmias. Serial troponins were negative and he underwent Myoview stress test that showed findings suspicious for a small stress ind uced apical defect. The stress test result was discussed with Cardiology, (Dr. Gutiérrez) and he did agr ees with the reading as he feels that this stress test is normal. The patient also had a gallbladder ultrasound that showed normal gallbladder, only incidental finding s of subcentimeter hepatic cyst. I believe his symptoms at this time are likely GI in nature. The patient was seen by social science analyst and he receives prescriptions for all his medications again and he states that he will establish care with Kianna Alfaro, nurse practitioner now that he has insurance. He is asymptomatic at this time and medically stable for dischargee. PHYSICAL EXAMINATION: Vital Signs: Temperature 98.8, heart rate is 70, respiratory rate is 12, oxyg en saturation 98% on room air, blood pressure is 130/81. General: The patient is a pleasant gentlem an, sitting up in bed, in no acute distress. Neuro: He is alert and oriented x3. DIET: Heart healthy diet. ACTIVITY: As tolerated. DISPOSITION: To home. STATUS WHILE IN THE HOSPITAL: Observation. The patient was advised about the importance of tobacco cessation and he says that he will try nicoti ne gum for cravings. Please keep in mind that this is a summarized version of this patient's hospital stay. If you need m ore information, please feel free to call me at [phone] or please obtain the full medical record s. TIME SPENT: Approximately 45 minutes were spent to complete this discharge. [id number]/[facility] #: [id number]
== END 2017-12-24 17:01 | disposition home or self-care (01) ==
LOC: ED 07:44 → MEDTELE 09:52
PROVIDERS: ADMIT Internal Medicine; ATTEND Internal Medicine
DX: R07.9 Chest pain, unspecified (principal); R10.10 Upper abdominal pain, unspecified; M25.529 Pain in unspecified elbow; M79.602 Pain in left arm; F17.210 Nicotine dependence, cigarettes, uncomplicated; R11.0 Nausea; Z79.82 Long term (current) use of aspirin; I25.10 Atherosclerotic heart disease of native coronary artery without angina pectoris; I25.2 Old myocardial infarction; Z95.5 Presence of coronary angioplasty implant and graft; E78.5 Hyperlipidemia, unspecified; I10 Essential (primary) hypertension; K21.9 Gastro-esophageal reflux disease without esophagitis; J44.9 Chronic obstructive pulmonary disease, unspecified; F31.9 Bipolar disorder, unspecified; R10.12 Left upper quadrant pain
CPT/HCPCS: 36415; 71045; 76705; 78452; 80053; 83605; 83690; 84484; 85025; 85730; 93005; 93017; 99284; A9270-GY; A9502; G0378; J0280; J1644; J2785

== ENCOUNTER 2018-12-03 10:34 | Emergency (ER) | payer MEDICAID, OTHER ==
--- OUTSIDE RECORDS SUMMARY | 2018-12-03 11:11 | XMS REPORT | Continuity of Care Document ---
:1975 External Reference #:[id number] Author Name Juliette Narda Care Team Providers Name Role Phone Kianna Alfaro N.P. Primary Care Physician Unavailable Payers Date Identification Numbers Payment Provider Subscriber Effective: 2017 Policy Number: [id number] Medicaid Ortega Berger Expires: 2018 Group Name: 1 1 [address] PayID: [id number] [place] [address] Policy Number: [id number] [place] Ortega Berger PayID: [id number] [address] [place] [address] Problems Active Problems Provider Date Chronic ischemic heart disease Dae Chatman M.D., [facility], [facility] Onset: 2014 Benign essential hypertension Dae Chatman M.D., [facility], [facility] Onset: 2014 Tobacco user Dae Chatman M.D., [facility], [facility] Onset: 09/21/2014 Hyperlipidemia Dae Chatman M.D., [facility], [facility] Onset: 09/21/2014 Essential hypertension Dae Chatman M.D., [facility], [facility] Onset: 05/26/2015 Dyspnea Dae Chatman M.D., [facility], [facility] Onset: 06/20/2015 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., [facility], [facility]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 Social History Type Date Description Comments Sex Unknown ETOH Use Drinks Alcoholic 1-2x per year Beverages Rarely Tobacco Use Start: Unknown Patient is a current 1/2 ppd smoker, smokes every day Recreational Drug Use Regularly uses Marijuana Smoking Status Reviewed: 11/04/18 Patient is a current 1/2 ppd smoker, smokes every day Exercise Type/Frequency Exercises sporadically kayaking 4 1/2 mile trip 2 times per month Allergies, Adverse Reactions, Alerts Description No Known Drug Allergies Medications Active Medications SIG Qnty Indications Ordering Date Provider Crestor 1 by mouth every 90tabs Reza Edwards, 01/17/2016 40mg Tablets day as directed DO [facility] Brilinta 1 tab by mouth 180tabs Reza Edwards, 12/16/2015 60mg Tablets twice a day DO [facility] Amoxicillin take 4 tabs 1 hour 4tabs Dae Chatman, 02/28/2015 500mg prior to dental M.D., [facility], Tablets procedure/appointm [facility] ent. Nitrostat 1 tab sublingual 25tabs I25.9 Dae Chatman, 10/27/2014 0.4mg as needed every 5 M.D., [facility], Tablets Sub mins x 3 [facility] Aspirin 1 by mouth every Unknown 81mg Tablets day Metoprolol Succinate 1 by mouth every 90tabs Dae Chatman, ER day M.D., [facility], 25mg Tablets ER [facility] 24HR Gabapentin 1 by mouth three Unknown 300mg times a day Capsules Bupropion HCL ER 1 by mouth every Unknown (XL) day 300mg Tablets ER 24HR Bupropion HCL ER 1 by mouth every Unknown (XL) day 150mg Tablets ER 24HR Lamotrigine 1 by mouth twice a Unknown 100mg day Tablets Pantoprazole Sodium 1 by mouth daily Unknown before a meal 40mg Tablets DR History Medications Effient 1 by mouth every 30tabs Dae Chatman, 06/21/2015 - 10mg Tablets day M.D., [facility], 12/15/2015 [facility] Crestor 1 by mouth 45tabs Dae Chatman, 11/18/2014 - 20mg Tablets alternating with 2 M.D., [facility], 01/17/2016 pills by mouth [facility] every other day Amlodipine Besylate 1 by mouth every 90tabs I25.9 Dae Chatman, 10/06/2014 - day M.D., [facility], 11/03/2018 2.5mg Tablets [facility] Depakote 1 by mouth twice a Unknown - 500mg Tablets day 11/03/2018 Wellbutrin XL 1 by mouth every Unknown - 300mg day 11/03/2018 Tablets ER 24HR Centrum Silver Adult 1 by mouth every Unknown - 50+ day 11/03/2018 Adult 50 Tablets Brilinta 1 tab by mouth 60tabs Dae Stefek, - 90mg Tablets twice a day M.D., [facility], 02/05/2017 [facility] Ventolin HFA 2 puffs by mouth Unknown - four times a day as 11/03/2018 108(90Base) mcg/Act needed Aerosol Serevent Diskus 1 puff twice a day Unknown - 12/11/2016 50mcg/Dose Aerosol Nicotine Step 2 apply one patch to Unknown - body daily as 12/15/2015 14mg/24HR Patches directed 24HR Buspirone HCL take 1 by mouth two Unknown - 10mg times a day 12/11/2016 Tablets Bupropion HCL ER (SR) 1 by mouth once a Unknown - day 12/11/2016 150mg Tablets ER 12HR Pantoprazole Sodium take 1 tablet po Unknown - daily 12/11/2016 40mg Tablets Nitroglycerin take 1 spray under 414.9 Unknown - the tongue if 10/27/2014 0.4mg/[place] Solution needed for angina May Repeat Miriam... Metoprolol Succinate take 1/2 tablet 30tabs Dae Stefek, - ER once daily M.D., [facility], 01/22/2016 100mg Tablets ER [facility] 24HR Lisinopril take 1 tablet once 90tabs Dae Stefek, - 5mg Tablets daily M.D., [facility], 11/03/2018 [facility] Crestor take 1 tablet once 30tabs Dae Stefek, - 20mg Tablets daily M.D., [facility], 11/18/2014 [facility] Brilinta take 1 tablet twice 60tabs Dae Stefek, - 90mg Tablets a day M.D., [facility], 12/16/2015 [facility] Colace 1 by mouth every Unknown - 100mg Capsules other day 04/22/2016 Vital Signs Date Vital Result Comment 11/04/2018 9:47am Height 69 inches 5'9" Weight 194.00 lb with shoes Heart Rate 64 /min BP Systolic Sitting 110 mmHg lue reg cuff BP Diastolic Sitting 72 mmHg lue reg cuff BP Systolic Standing 112 mmHg lue reg cuff BP Diastolic Standing 74 mmHg lue reg cuff Respiratory Rate 16 /min BMI (Body Mass Index) 28.6 kg/m2 Ejection Fraction 50-55% echo. 01/11/16 11/05/2017 1:18pm Height 69 inches 5'9" Weight 192.00 lb w/ shoes Heart Rate 60 /min BP Systolic Sitting 112 mmHg lue lg cuff BP Diastolic Sitting 72 mmHg lue lg cuff BP Systolic Standing 114 mmHg lue lg cuff BP Diastolic Standing 78 mmHg lue lg cuff Respiratory Rate 18 /min BMI (Body Mass Index) 28.4 kg/m2 Ejection Fraction 50-55% echo 01/11/16 12/12/2016 3:57pm Height 69 inches 5'9" Weight 193.00 lb w/shoes Heart Rate 58 /min sit, 66 standing HR BP Systolic Sitting 118 mmHg Ra, regular BP Diastolic Sitting 70 mmHg Ra, regular BP Systolic Standing 124 mmHg Ra, regular BP Diastolic Standing 64 mmHg Ra, regular BMI (Body Mass Index) 28.5 kg/m2 Ejection Fraction 50-55% echo 01/11/16 04/23/2016 3:49pm Height 69 inches 5'9" Weight 203.00 lb Heart Rate 54 /min 56 BP Systolic Sitting 112 mmHg right arm, reg cuff BP Diastolic Sitting 72 mmHg right arm, reg cuff BP Systolic Standing 108 mmHg right arm, reg cuff BP Diastolic Standing 72 mmHg right arm, reg cuff Respiratory Rate 20 /min BMI (Body Mass Index) 30.0 kg/m2 Ejection Fraction 50-55% 01/11/16 01/23/2016 3:13pm Height 69 inches 5'9" Weight 202.00 lb Heart Rate 58 /min 62 BP Systolic Sitting 116 mmHg right arm, reg cuff BP Diastolic Sitting 84 mmHg right arm, reg cuff BP Systolic Standing 118 mmHg right arm, reg cuff BP Diastolic Standing 84 mmHg right arm, reg cuff Respiratory Rate 20 /min BMI (Body Mass Index) 29.8 kg/m2 Ejection Fraction 50-55% 01/11/16 12/16/2015 2:34pm Height 69 inches 5'9" Weight 204.00 lb Heart Rate 58 /min 60 BP Systolic Sitting 118 mmHg right arm, reg cuff BP Diastolic Sitting 88 mmHg right arm, reg cuff BP Systolic Standing 116 mmHg right arm, reg cuff BP Diastolic Standing 84 mmHg right arm, reg cuff Respiratory Rate 20 /min BMI (Body Mass Index) 30.1 kg/m2 Ejection Fraction 50-55% 09/13/14 06/20/2015 3:56pm Height 69 inches 5'9" Weight 197.00 lb Heart Rate 62 /min 64 BP Systolic Sitting 128 mmHg right arm, reg cuff BP Diastolic Sitting 82 mmHg right arm, reg cuff BP Systolic Standing 126 mmHg right arm, reg cuff BP Diastolic Standing 82 mmHg right arm, reg cuff BMI (Body Mass Index) 29.1 kg/m2 05/26/2015 9:35am Height 69 inches 5'9" Weight 204.00 lb Heart Rate 64 /min 66 BP Systolic Sitting 128 mmHg right arm, reg cuff BP Diastolic Sitting 82 mmHg right arm, reg cuff BP Systolic Standing 108 mmHg right arm, reg cuff BP Diastolic Standing 82 mmHg right arm, reg cuff Respiratory Rate 20 /min BMI (Body Mass Index) 30.1 kg/m2 Ejection Fraction 50-55% 09/13/14 04/25/2015 8:33am Height 69 inches 5'9" Weight 203.00 lb Heart Rate 72 /min 76 BP Systolic Sitting 126 mmHg right arm, reg cuff BP Diastolic Sitting 90 mmHg right arm, reg cuff BP Systolic Standing 118 mmHg right arm, reg cuff BP Diastolic Standing 86 mmHg right arm, reg cuff Respiratory Rate 20 /min BMI (Body Mass Index) 30.0 kg/m2 Ejection Fraction 50-55% 09/13/14 10/27/2014 8:50am Height 69 inches 5'9" Weight 217.00 lb Heart Rate 58 /min 62 BP Systolic Sitting 108 mmHg left arm, reg cuff BP Diastolic Sitting 84 mmHg left arm, reg cuff BP Systolic Standing 110 mmHg left arm, reg cuff BP Diastolic Standing 82 mmHg left arm, reg cuff Respiratory Rate 16 /min BMI (Body Mass Index) 32.0 kg/m2 Ejection Fraction 50-55% 09/13/14 10/13/2014 3:42pm Heart Rate 60 /min 66 BP Systolic Sitting 112 mmHg left arm, reg cuff BP Diastolic Sitting 70 mmHg left arm, reg cuff BP Systolic Standing 108 mmHg left arm, reg cuff BP Diastolic Standing 72 mmHg left arm, reg cuff Respiratory Rate 20 /min 10/06/2014 2:06pm Height 69 inches 5'9" Weight 215.00 lb Heart Rate 60 /min 62 BP Systolic 141 mmHg Home BP cuff, Left arm BP Diastolic 92 mmHg Home BP cuff, Left arm BP Systolic Sitting 138 mmHg left arm, reg cuff BP Diastolic Sitting 98 mmHg left arm, reg cuff BP Systolic Standing 134 mmHg left arm, reg cuff BP Diastolic Standing 94 mmHg left arm, reg cuff Respiratory Rate 20 /min BMI (Body Mass Index) 31.7 kg/m2 Ejection Fraction 50-55% 09/13/14 09/21/2014 2:30pm Height 69 inches 5'9" Weight 218.00 lb with shoes Heart Rate 68 /min 60 sit and stand HR reg BP Systolic Sitting 134 mmHg Ra reg cuff BP Diastolic Sitting 80 mmHg Ra reg cuff BP Systolic Standing 140 mmHg Ra reg cuff BP Diastolic Standing 90 mmHg Ra reg cuff Respiratory Rate 17 /min BMI (Body Mass Index) 32.2 kg/m2 Ejection Fraction 50-55% date 09/13/14 Results Test Date Facility Test Result H/L Range Note Lipid Profile 12/28/2016 [facility] Triglycerides 91 mg/dL N 1 (Trig/Chol/HDL) [address] [place] [address] [phone] Cholesterol 128 mg/dL N 2 HDL Cholesterol 47.7 mg/dL N 3 LDL Cholesterol 62 mg/dL N 4 Laboratory test finding 12/28/2016 [facility] Alt 20 U/L N 7- [address] [place] [address] [phone] Ast (Sgot) 18 U/L N 13-39 6 Creatine Kinase(CK) 125 U/L N 10-223 7 Lipid Profile 06/29/2016 [facility] Triglycerides 76 mg/dL N 8 (Trig/Chol/HDL) [address] [place] [address] [phone] Cholesterol 135 mg/dL N 9 HDL Cholesterol 46.3 mg/dL N 10 LDL Cholesterol 74 mg/dL N 11 Laboratory test 06/29/2016 [facility] Creatine 245 U/L High 10 -[address] Kinase(CK) [place] [address] [phone] Laboratory test 06/29/2016 [facility] (SGPT) 19 U/L N 7- 52 13 finding [address] [place] [address] [phone] Ast (Sgot) 20 U/L N 13-39 14 Laboratory test finding 01/20/2016 [facility] (SGPT) 29 U/L N 7-52 15 [address] [place] [address] [phone] Ast (Sgot) 24 U/L N 13-39 16 Lipid Profile 01/20/2016 [facility] Triglycerides 161 mg/dL N 17 (Trig/Chol/HDL) [address] [place] [address] [phone] Cholesterol 200 mg/dL N 18 HDL Cholesterol 44.2 mg/dL N 19 LDL Cholesterol 124 mg/dL N 20 Basic Metabolic Panel 06/02/2015 [facility] Sodium 140 mmol/L N 133-145 [address] [place] [address] [phone] Potassium 4.4 mmol/L N 3.5-5.0 Chloride 106 mmol/L N 101-111 Co2 Carbon Dioxide 28 mmol/L N 22-32 Anion Gap 6 mmol/L N 2-11 Glucose 118 mg/dL High 70-100 Blood Urea Nitrogen 9 mg/dL N 6-24 Creatinine 1.12 mg/dL N 0.67-1.17 BUN/Creatinine Ratio 8.0 N 8-20 Calcium 8.9 mg/dL N 8.6-10.3 Egfr Non- 72.3 N >60 Egfr 92.9 N >60 21 Laboratory test finding 06/02/2015 [facility] (SGPT) 13 U/L N 7-52 22 [address] [place] [address] [phone] Ast (Sgot) 16 U/L N 13-39 23 Lipid Profile 06/02/2015 [facility] Triglycerides 146 mg/dL N 24 (Trig/Chol/HDL) [address] [place] [address] [phone] Cholesterol 131 mg/dL N 25 HDL Cholesterol 35.5 mg/dL N 26 LDL Cholesterol 66 mg/dL N 27 Laboratory test finding 01/18/2015 [facility] (SGPT) 10 U/L N 7-52 [address] [place] [address] [phone] Ast (Sgot) 14 U/L N 13-39 Lipid Panel 01/18/2015 [facility] Triglycerides 85 mg/dL N 28 [address] [place] [address] [phone] Cholesterol 134 mg/dL N 29 HDL Cholesterol 36.3 mg/dL N 30 LDL Cholesterol 81 mg/dL N 31 Lipid Profile 11/17/2014 [facility] Triglycerides 121 mg/dL N 32 (Trig/Chol/HDL) [address] [place] [address] [phone] Cholesterol 161 mg/dL N 33 HDL Cholesterol 38.6 mg/dL N 34 LDL Cholesterol 98 mg/dL N 35 Laboratory test finding 11/17/2014 [facility] (SGPT) 14 U/L N 7-52 [address] [place] [address] [phone] Ast (Sgot) 18 U/L N 13-39 1 Desirable <150 Borderline high 150-199 High 200-499 Very High >500 2 Desirable <200 Borderline high 200-239 High >239 3 Low <40 Desirable: 40-60 High: >60 4 Desirable: <100 mg/dL Near Optimal: 100-129 mg/dL Borderline High: 130-159 mg/dL High: 160-189 mg/dL Very High: >189 mg/dL 5 FASTING To be drawn within one month, Copy to Dr. Norah Iniguez MD 6 FASTING To be drawn within one month, Copy to Dr. Norah Iniguez MD 7 FASTING To be drawn within one month, Copy to Dr. Norah Iniguez MD 8 Desirable <150 Borderline high 150-199 High 200-499 Very High >500 9 Desirable <200 Borderline high 200-239 High >239 10 Low <40 Desirable: 40-60 High: >60 11 Desirable: <100 mg/dL Near Optimal: 100-129 mg/dL Borderline High: 130-159 mg/dL High: 160-189 mg/dL Very High: >189 mg/dL 12 FASTING to be drawn after the middle of June 2016, with copy to Dr. Lukas Iniguez Copy Result to: NORAH INIGUEZ ([id number]) 13 FASTING to be drawn after the middle of June 2016, with copy to Dr. Lukas Iniguez Copy Result to: NORAH INIGUEZ ([id number]) 14 FASTING to be drawn after the middle of June 2016, with copy to Dr. Lukas Iniguez Copy Result to: NORAH INIGUEZ ([id number]) [address] Norah Iniguez [address] Norah Iniguez 17 Desirable <150 Borderline high 150-199 High 200-499 Very High >500 18 Desirable <200 Borderline high 200-239 High >239 19 Low <40 Desirable: 40-60 High: >60 20 Desirable: <100 mg/dL Near Optimal: 100-129 mg/dL Borderline High: 130-159 mg/dL High: 160-189 mg/dL Very High: >189 mg/dL 21 Because ethnic data is not always readily available, this report includes an eGFR for both -Americans and non- Americans. The National Kidney Disease Education Program (NKDEP) does not endorse the use of the MDRD equation for patients that are not between the ages of 18 and 70, are , have extremes of body size, muscle mass, or nutritional status, or are non- or non-. According to the National Kidney Foundation, irrespective of diagnosis, the stage of the disease is based on the level of kidney function: Stage Description GFR(mL/min/1.73 m(2)) 1 Kidney damage with normal or decreased GFR 90 2 Kidney damage with mild decrease in GFR 60-89 3 Moderate decrease in GFR 30-59 4 Severe decrease in GFR 15-29 5 Kidney failure <15 (or dialysis) [address] Norah Iniguez [address] Norah Iniguez 24 Desirable <150 Borderline high 150-199 High 200-499 Very High >500 25 Desirable <200 Borderline high 200-239 High >239 26 Low <40 Desirable: 40-60 High: >60 27 Desirable: <100 mg/dL Near Optimal: 100-129 mg/dL Borderline High: 130-159 mg/dL High: 160-189 mg/dL Very High: >189 mg/dL 28 Desirable <150 Borderline high 150-199 High 200-499 Very High >500 29 Desirable <200 Borderline high 200-239 High >239 30 Low <40 Desirable: 40-60 High: >60 31 Desirable: <100 mg/dL Near Optimal: 100-129 mg/dL Borderline High: 130-159 mg/dL High: 160-189 mg/dL Very High: >189 mg/dL 32 Desirable <150 Borderline high 150-199 High 200-499 Very High >500 33 Desirable <200 Borderline high 200-239 High >239 34 Low <40 Desirable: 40-60 High: >60 35 Desirable: <100 mg/dL Near Optimal: 100-129 mg/dL Borderline High: 130-159 mg/dL High: 160-189 mg/dL Very High: >189 mg/dL Procedures Date Code Description Status 11/04/2018 64017 EKG Tracing & Interpretation Completed 12/24/2017 09257 Treadmill Interp/Report Only Completed 12/24/2017 51888 Stress Test Supervsn W/Out I/R Completed 01/23/2016 72774 EKG Tracing & Interpretation Completed 01/11/2016 83129 ECHO Transthorasic Realtime 2D W Doppler & Color Flow Hosp Completed 01/11/2016 33905 ECHO Transthorasic Realtime 2D W Doppler & Color Flow Hosp Completed 01/11/2016 52634 EKG, Interpretation Only Completed 01/10/2016 66726 EKG, Interpretation Only Completed 01/09/2016 62025 EKG, Interpretation Only Completed 01/08/2016 46715 Cath PLMT&NJX L Ventriculog Img S&I Completed 01/08/2016 74872 EKG, Interpretation Only Completed 01/08/2016 64375 Intravascular Ultrasound (Coron) Completed 01/08/2016 24458 Revascularization Acute Total/Subtotal Occlusion Completed 12/16/2015 75419 EKG Tracing & Interpretation Completed 06/14/2015 08013 Stress Test Supervsn W/Out I/R Completed 06/14/2015 94011 Treadmill Interp/Report Only Completed 05/26/2015 55671 EKG Tracing & Interpretation Completed 04/25/2015 04259 EKG Tracing & Interpretation Completed 10/05/2014 83936 Treadmill Interp/Report Only Completed 10/05/2014 03475 Stress Test Supervsn W/Out I/R Completed 09/21/2014 18942 EKG Tracing & Interpretation Completed 09/15/2014 97008 EKG, Interpretation Only Completed 09/14/2014 65677 EKG, Interpretation Only Completed 09/13/2014 87500 ECHO Transthorasic Realtime 2D W Doppler & Color Flow Hosp Completed 09/13/2014 49326 EKG, Interpretation Only Completed 09/12/2014 26764 Left Heart Cath. Incl S/I Coronaries, Angio S/I V Gram If Completed Done 09/12/2014 03336 EKG, Interpretation Only Completed 09/12/2014 04173 Revascularization Acute Total/Subtotal Occlusion Completed Encounters Type Date Location Provider Dx Diagnosis Office Visit 12/24/2017 [facility] Keerthi Greenwood, M25.522 Pain in left 1:27p Assoc,[facility] [place] [facility] R10.12 Left upper quadrant pain Office Visit 12/23/2017 1:27p [facility] Fatimah Youssef, M25.522 Pain in left Assoc,pc [facility] elbow Hospitalists R10.12 Left upper quadrant pain Office Visit 11/05/2017 1:20p [facility] Dae Chatman, I25.10 [facility]cl [facility], disease of [facility] [place] coronary artery w/o ang pctrs Z72.0 Tobacco use I10 Essential (primary) hypertension E78.5 Hyperlipidemia, unspecified Office Visit 12/12/2016 3:40p [facility] Dae Chatman, I25.10 Athscl heart [facility], [facility] [place] coronary artery w/o ang pctrs Z72.0 Tobacco use I10 Essential (primary) hypertension E78.5 Hyperlipidemia, unspecified I25.2 Old myocardial infarction Office Visit 08/13/2016 [facility] Tanner Lavonne, T39.1x2A Poisoning by 2:23p Assbrandee anderson M.D. 4-Aminophenol Hospitalists derivatives, self-harm, init I25.118 Athscl heart disease of [place] cor art w oth ang pctrs T14.91 Suicide attempt Office Visit 04/23/2016 4:00p [facility] Alexia Chatman, Z72.0 Tobacco use [facility], [facility] I25.10 Athscl heart disease of [place] coronary artery w/o ang pctrs I10 Essential (primary) hypertension E78.5 Hyperlipidemia, unspecified Office Visit 01/23/2016 3:00p [facility] Megan Lovett I21.11 Stemi involving Of [facility] [place] Eve, right coronary FACC, [facility] artery Z72.0 Tobacco use Office Visit 01/11/2016 11:58a [facility] Dae Chatman, I21.11 Stemi involving Of [facility], FACC, right coronary [facility]SCAI artery I25.10 Athscl heart disease of [place] coronary artery w/o ang pctrs I10 Essential (primary) hypertension Office Visit 01/10/2016 11:54a [facility] Dae Chatman, I21.11 Stemi involving Of [facility], FACC, right coronary FSCAI artery Office Visit 01/09/2016 11:52a [facility] Dae Chatman, I21.11 Stemi involving Of [facility], FACC, right coronary FSCAI artery Office Visit 01/08/2016 4:52p [facility] Megan Lovett I21.11 Stemi involving Of [facility] [place] Eve, right coronary FACC, [facility]SC[facility] artery E78.5 Hyperlipidemia, unspecified Z72.0 Tobacco use Office Visit 12/16/2015 3:00p [facility] Dae Chatman, I25.9 Chronic ischemic [facility], FACC, heart disease, [facility]SCAI unspecified I10 Essential (primary) hypertension E78.5 Hyperlipidemia, unspecified I25.10 Athscl heart disease of [place] coronary artery w/o ang pctrs Office Visit 06/20/2015 3:40p [facility] Dae Chatman, R06.02 Shortness of Of [facility], FACC, breath FSCAI I25.9 Chronic ischemic heart disease, unspecified Office Visit 05/26/2015 9:40a [facility] Dae Chatman, I10 Essential (primary) [facility], FACC, hypertension FSCAI I25.9 Chronic ischemic heart disease, unspecified E78.5 Hyperlipidemia, unspecified F17.210 Nicotine dependence, cigarettes, uncomplicated Office Visit 10/27/2014 9:00a [facility] Dae Chatman, 401.1 Hypertension Of [facility], FACC, Benign FSCAI 414.9 Ischemic Heart Disease Chronic Unspec 272.4 Hyperlipidemia Other Unspec 305.1 Tobacco Use Disorder Office Visit 10/13/2014 4:00p [facility] Nurse Visit 401.1 Hypertension Benign [facility] IC Office Visit 10/06/2014 3:00p [facility] Dae Chatman, 414.9 Ischemic Heart [facility] [place], FACC, Disease Chronic FSCAI Unspec 401.1 Hypertension Benign 272.4 Hyperlipidemia Other Unspec Office Visit 09/21/2014 3:20p [facility] Dae Chatman, 414.9 Ischemic Heart [facility], FACC, Disease Chronic FSCAI Unspec 401.1 Hypertension Benign 305.1 Tobacco Use Disorder 272.4 Hyperlipidemia Other Unspec Office Visit 09/15/2014 9:08a [facility] Megan Lovett 410.40 Myocardial Infarc [facility] [place] Eve, Acute Other Infer FACC, FSCAI Wall Episode CR Unspec Office Visit 09/14/2014 9:08a [facility] Megan Lovett 410.40 Myocardial Infarc Of [facility] [place] Eve, Acute Other Infer FACC, FSCAI Wall Episode CR Unspec Office Visit 09/13/2014 9:08a [facility] Megan Lovett 410.40 Myocardial Infarc [facility] [place] Eve, Acute Other Infer FACC, FSCAI Wall Episode CR Unspec Office Visit 09/12/2014 1:45p [facility] Dae Chatman, 786.59 Pain Chest Other [facility], FACC, FSCAI 414.9 Ischemic Heart Disease Chronic Unspec 410.40 Myocardial Infarc Acute Other Infer Wall Episode CR Unspec Plan of Treatment 11/04/2018 - Reza Edwards, DO FACCI25.2 Old myocardial infarctionFollow up:1 yearI25.10 Atherosclerotic heart disease of [place] coronary artery withZ72.0 Tobacco useI10 Essential (primary) cvtzdvigbosoZ40.5 Hyperlipidemia, lerrqkgkynvZ10.9 Chronic obstructive pulmonary disease, unspecified
--- NOTE | 2018-12-03 12:56 | ED ---
Abdominal Pain/Male - HPI Summary HPI Summary: A 43 y/o male presents to [facility] with a chief complaint of lower abdominal pain for the past month. He also reports nausea, diarrhea and a headache. At triage he rated his pain as a 4/10 in severity. He reports a Hx of polyps and GERD, claiming that he gets "acid all the way to the back of the mouth". He says that he has not been able to work because of the abdominal pain. He denies any major abdominal surgeries. He says that his headache started 1 week ago, is different from headaches that he has had before, and is located in the back of his head. He says that his diarrhea varies in consistency and amount per day for the past month. He has a Hx of SD and has stents. He denies any CP but reports some intermittent SOB. He says that he takes Aspirin, Brupopion, Metoprolol, Pantoprazole, Lamictal, Birlinta and Gabapentin. He claims that he can't see his GI until January. He reports smoking 1/2 ppd, marijuana use and rare EtOH use. - History of Current Complaint Chief Complaint: Bernadette Stated Complaint: LOWER STOMACH/GUT PAIN/NAUSEA PER PT Time Seen by Provider: 12/03/18 12:48 Hx Obtained From: Patient Onset/Duration: Gradual Onset, Lasting Weeks, Still Present Timing: Lasting Weeks Severity Initially: Moderate Severity Currently: Moderate Pain Intensity: 4 Pain Scale Used: 0-10 Numeric Location: Other - lower Radiates: No Character: Other: - unable to describe Aggravating Factor(s): Nothing Alleviating Factor(s): Nothing Associated Signs And Symptoms: Positive: Nausea, Diarrhea, Other - headache, SOB. Negative: Fever, Chest Pain - Allergies/Home Medications Allergies/Adverse Reactions: Allergies Allergy/AdvReac Type Severity Reaction Status Date / Time No Known Allergies Allergy Verified 12/03/18 10:57 Home Medications: Home Medications Bupropion XL* [Wellbutrin XL *] 450 mg PO DAILY 12/03/18 [History Confirmed ] Gabapentin 300 mg PO BID 12/03/18 [History Confirmed 12/03/18] Gabapentin 300 mg PO TID PRN 12/03/18 [History Confirmed 12/03/18] Pantoprazole TAB (NF) [Protonix TAB (NF)] 40 mg PO DAILY 12/03/18 [History Confirmed 12/03/18] Rosuvastatin Calcium [Crestor] 40 mg PO BEDTIME 12/03/18 [History Confirmed ] lamoTRIgine TAB(*) [Lamictal TAB(*)] 100 mg PO BID 12/03/18 [History Confirmed 12/03/18] PMH/Surg Hx/FS Hx/Imm Hx Endocrine/Hematology History: Denies: Hx Diabetes, Hx Anemia Cardiovascular History: Reports: Hx Angina, Hx Angioplasty, Hx Cardiac Arrest, Hx Coronary Artery Disease - STENT RCA,SEE CATH REPORT, Hx Hypercholesterolemia , Hx Hypertension, Hx Myocardial Infarction - X2 Denies: Hx Aneurysm, Hx Auto Implanted Cardiovert Defib, Hx Cardiomegaly, Hx Congenital Heart Disease, Hx Congestive Heart Failure, Hx Deep Vein Thrombosis, Hx Embolism, Hx Hypotension, Hx Pacemaker/ICD Respiratory History: Reports: Hx Asthma - inhalers, Hx Chronic Obstructive Pulmonary Disease (COPD), Other Respiratory Problems/Disorders - states he wheezes GI History: Reports: Hx Gastroesophageal Reflux Disease, Hx Ulcer - acid Musculoskeletal History: Reports: Hx Back Problems - freq low back ache Sensory History: Reports: Hx Contacts or Glasses Denies: Hx Cataracts, Hx Hearing Aid Opthamlomology History: Reports: Hx Contacts or Glasses Denies: Hx Cataracts - Surgical History Surgery Procedure, Year, and Place: tonsillectomy 1988 Hx Anesthesia Reactions: No Infectious Disease History: No Infectious Disease History: Denies: Traveled Outside the [place] in Last 30 Days - Family History Known Family History: Positive: Cardiac Disease - CAD - Social History Alcohol Use: Rare Hx Substance Use: No Substance Use Type: Reports: Marijuana Substance Use Comment - Amount & Last Used: daily Hx Tobacco Use: Yes Smoking Status (MU): Heavy Every Day Tobacco Smoker Type: Cigarettes Amount Used/How Often: 2 1/2 to 3 pack per day Length of Time of Smoking/Using Tobacco: 28 YEARS Have You Smoked in the Last Year: Yes Review of Systems Negative: Fever Negative: Chest Pain Positive: Shortness Of Breath Positive: Abdominal Pain, Diarrhea, Nausea Positive: Headache All Other Systems Reviewed And Are Negative: Yes Physical Exam - Summary Physical Exam Summary: GENERAL: Patient is a well-developed and nourished M who is lying comfortable in the stretcher. Patient is not in any acute respiratory distress. HEAD AND FACE: Normocephalic EYES: PERRLA, EOMI x 2. EARS: Hearing grossly intact. MOUTH: Oropharynx within normal limits. NECK: Supple, trachea is midline, no adenopathy, no JVD, no carotid bruit. CHEST: Symmetric, no tenderness at palpation LUNGS: Clear to auscultation bilaterally. No wheezing or crackles. CVS: Regular rate and rhythm, S1 and S2 present, no murmurs or gallops appreciated. ABDOMEN: Soft, TTP in the lower abdomen, no rebound or guarding. Bowel sounds are normal. No abnormal abdominal pulsations. EXTREMITIES: Full ROM in all major joints, no edema, no cyanosis or clubbing. NEURO: Alert and oriented x 3. No acute neurological deficits. Speech is normal and follows commands. SKIN: Dry and warm Triage Information Reviewed: Yes Vital Signs On Initial Exam: Initial Vitals Temp Pulse Resp BP Pulse Ox 98.5 F 53 16 130/77 98 12/03/18 10:54 12/03/18 10:54 12/03/18 10:54 12/03/18 10:54 12/03/18 10:54 Vital Signs Reviewed: Yes - Rikki Coma Scale Best Eye Response: 4 - Spontaneous Best Motor Response: 6 - Obeys Commands Best Verbal Response: 5 - Oriented Coma Scale Total: 15 Diagnostics - Vital Signs Vital Signs Temp Pulse Resp BP Pulse Ox 12/03/18 12:44 97.9 F 53 16 130/81 98 12/03/18 10:54 98.5 F 53 16 130/77 98 - Laboratory Result Diagrams: 12/03/18 12:57 12/03/18 12:57 Lab Statement: Any lab studies that have been ordered have been reviewed, and results considered in the medical decision making process. - Radiology CXR Radiology Interpretation Completed By: Radiologist Summary of Radiographic Findings: NO EVIDENCE FOR ACTIVE CARDIOPULMONARY DISEASE. ED physician has reviewed this imaging report. - CT abdomen/pelvis CT Interpretation Completed By: Radiologist Summary of CT Findings: No abnormal masses or fluid collections are noted although mild wall. thickening of the urinary bladder is noted. No definite masses or fluid collections are noted. ED physician has reviewed this imaging report. Brain CT Interpretation Completed By: Radiologist Summary of CT Findings: 1. NO EVIDENCE FOR ACUTE INTRACRANIAL ABNORMALITY. 2. SOFT TISSUE SWELLING ANTERIOR TO THE FRONTAL SINUSES AND MAXILLA. 3. PROBABLE MUCOCELE IN AN ANTERIOR ETHMOID AIR CELL. ED physician has reviewed this imaging report. - EKG 13:40 Cardiac Rate: Bradycardia - 50 bpm EKG Rhythm: Sinus Bradycardia EKG Comparison: No Significant Change Summary of EKG Findings: EKG at 13:40 showed sinus bradycardia at 50 bpm, intraventricular conduction delay, LAD, similar compared to previous EKG. Re-Evaluation - Re-Evaluation First Eval Re-Evaluation Time: 15:21 Change: Improved Comment: Pt is feeling better Abdominal Pain Male Course/Dx - Course Course Of Treatment: A 43 y/o male presents to [facility] with a chief complaint of lower abdominal pain for the past month. He also reports nausea, diarrhea and a headache. The physical exam revealed TTP in the lower abdomen, no rebound or guarding. In the ED course the patient was given Morphine IV, Zofran IV and Sodium Chloride IV. EKG at 13:40 showed sinus bradycardia at 50 bpm, intraventricular conduction delay, LAD, similar compared to previous EKG. CT abdomen/pelvis impression: No abnormal masses or fluid collections are noted although mild wall. thickening of the urinary bladder is noted. No definite masses or fluid collections are noted. Blood work, chemistries and urines obtained and are WNL. Brain CT impression: 1. NO EVIDENCE FOR ACUTE INTRACRANIAL ABNORMALITY. 2. SOFT TISSUE SWELLING ANTERIOR TO THE FRONTAL SINUSES AND MAXILLA. 3. PROBABLE MUCOCELE IN AN ANTERIOR ETHMOID AIR CELL. CXR impression: NO EVIDENCE FOR ACTIVE CARDIOPULMONARY DISEASE. The patient will be discharged. I discussed results with patient, and he reports feeling better. He is hemodynamically stable and safe for discharge. Strict return precautions given and he will otherwise follow up with his PCP. - Diagnoses Provider Diagnoses: Abdominal pain, Headache, Mucocele of ethmoid sinus Discharge - Sign-Out/Discharge Documenting (check all that apply): Patient Departure - DC Patient Received Moderate/Deep Sedation with Procedure: No - Discharge Plan Condition: Stable Disposition: HOME Patient Education Materials: Acute Headache (DC), Acute Abdominal Pain (DC) Referrals: Kianna Alfaro [Primary Care Provider] - (1-3 days) Iris Pettit MD [Medical Doctor] - Additional Instructions: Your abdomen/pelvis CT showed: No abnormal masses or fluid collections are noted although mild wall thickening of the urinary bladder is noted. Follow up with your primary care physician in 1-3 days. RETURN TO THE EMERGENCY DEPARTMENT FOR CHANGING OR WORSENING SYMPTOMS. - Billing Disposition and Condition Condition: STABLE Disposition: Home - Attestation Statements Document Initiated by Rodrigo: Yes Documenting Scribe: Dae Murillo Provider For Whom Rodrigo is Documenting (Include Credential): Antione Zhu MD Scribe Attestation: Dae Villarreal, scribed for Antione Zhu MD on 12/03/18 at 1618. Scribe Documentation Reviewed: Yes Provider Attestation: The documentation as recorded by the Dae barron accurately reflects the service I personally performed and the decisions made by me, Gbai Zhu MD Status of Scribe Document: Viewed
[2018-12-03 13:10] LABS: ABS Basophils 0.2 10^3/ul (0-0.2); ABS Eosinophils 0.1 10^3/ul (0-0.6); ABS Lymphocytes 3.5 10^3/ul (1.0-4.8); ABS Monocytes 0.7 10^3/ul (0-0.8); ABS Neutrophils 8.4 10^3/ul (1.5-7.7); Hematocrit 48 % (42-52); Lymphocyte % 27.2 %; Mean Corpuscular HGB Conc 34 g/dL (31-36); Mean Corpuscular Hemoglobin 31 pg (27-31); Mean Corpuscular Volume 92 fL (80-94); Mean Platelet Volume 6.7 fL (7.4-10.4); Platelet Count 319 10^3/uL (150-450); Red Blood Count 5.18 10^6 /uL (4.18-5.48); Red Cell Distribution Width 14 % (10-15); White Blood Count 12.9 10^3/uL (3.5-10.8)
[2018-12-03] MEDS ORDERED: NS 0.9% 1000 ML** 1,000 ML IV ONE (13:16)
[2018-12-03] MEDS ORDERED: Morphine 4 MG/ML VIAL (1 ml) 4 MG/ML VIAL IV ONE (13:16)
[2018-12-03] MEDS ORDERED: Ondansetron INJ* 2 MG/ML VIAL IV ONE (13:16)
[2018-12-03 13:27] LABS: Activated Partial Thrombo Time 32.3 seconds (26.0-38.0); INR 0.98 (0.82-1.09)
[2018-12-03 13:39] LABS: Albumin 4.5 g/dL (3.2-5.2); Albumin/Globulin Ratio 1.5 (1-3); BUN/Creatinine Ratio 12.7 (8-20); C Reactive Protein 2.43 mg/L (<8.01); Calcium 9.5 mg/dL (8.6-10.3); EGFR African American 95.6 (>60); Globulin 3.1 g/dL (2-4); Magnesium 2.3 mg/dL (1.9-2.7); Potassium 4.3 mmol/L (3.5-5.0); Total Bilirubin 0.4 mg/dL (0.2-1.0); Total Protein 7.6 g/dL (6.4-8.9)
[2018-12-03] MEDS ORDERED: Iohexol 300* (CONTRAST) 10 ML SDV IV ONE (14:21)
[2018-12-03 15:41] LABS: Urine Appearance Clear; Urine Bacteria Absent (Absent); Urine Bilirubin Negative (Negative); Urine Blood Negative (Negative); Urine Color Yellow; Urine Glucose Negative (Negative); Urine Ketones Negative (Negative); Urine Nitrite Negative (Negative); Urine Protein Negative (Negative); Urine Red Blood Cell Trace(0-2/hpf) (Absent); Urine Specific Gravity 1.011 (1.010-1.030); Urine Squamous Epithelial Cell Present (Absent); Urine Urobilinogen Negative (Negative); Urine White Blood Cell Trace(0-5/hpf) (Absent)
[2018-12-03 16:17] VITALS: BP 117/76
== END 2018-12-03 16:17 | disposition home or self-care (01) ==
LOC: ED 10:34
DX: R10.9 Unspecified abdominal pain (principal); R51 Headache; J34.1 Cyst and mucocele of nose and nasal sinus; Z79.82 Long term (current) use of aspirin; Z79.899 Other long term (current) drug therapy; I25.119 Atherosclerotic heart disease of native coronary artery with unspecified angina pectoris; E78.00 Pure hypercholesterolemia, unspecified; I10 Essential (primary) hypertension; I25.2 Old myocardial infarction; J45.909 Unspecified asthma, uncomplicated; F17.210 Nicotine dependence, cigarettes, uncomplicated
CPT/HCPCS: 36415; 70450; 71045; 74177; 80053; 81003; 82150; 83605; 83690; 83735; 83880; 84484; 85025; 85610; 85730; 86140; 87077; 87086; 93005; 96361; 96374; 96375; 99284; J2270; J2405; Q9967